=== PATIENT | male | born 1960 | race Caucasian/White ===

== ENCOUNTER 2024-04-30 14:26 | Emergency (ER) | payer MEDICARE, SELFPAY ==
[2024-04-30 14:35] VITALS: BP 149/86; PULSE 77; RESP 20; TEMP 36.8; O2SAT 100
--- NOTE | 2024-04-30 14:58 | ED_ITS ---
HPI - URI/Sore Throat General Chief Complaint: Upper Respiratory Infection Stated Complaint: Sinus Congestion/Ear Pain Time Seen by Provider: 04/30/24 14:50 Source: patient, RN notes reviewed and old records reviewed Mode of arrival: ambulatory Limitations: no limitations History of Present Illness HPI Narrative: 64 year old male who presents to [facility] care with complaints of 2 day history of sinus congestion drainage some facial pressure with ear pain with ears popping. Patient reports that he has had cough which is dry denies any shortness of breath. Patient reports no fevers chills or body aches. Patient has not tried any OTC medications for his symptoms, is daily cigarette smoker and has history of hypertension. MD elicited complaint: rhinorrhea, nasal congestion and other (ear pain) Pertinent past history: other (smoker) Onset (ago): day(s) (2) Severity: moderate Able to tolerate fluids by mouth: Yes Treatments prior to arrival: none Related Data Home Medications ?Medication ?Instructions ?Recorded ?Confirmed ?Last Taken ?Type albuterol sulfate 90 mcg/actuation inhalation 04/30/24 Unknown History aerosol inhaler amlodipine 10 mg tablet mg 04/30/24 Unknown History bupropion HCl 75 mg tablet mg PO 04/30/24 Unknown History buspirone 5 mg tablet mg 04/30/24 Unknown History lisinopril 40 mg tablet mg 04/30/24 Unknown History Allergies Allergy/AdvReac Type Severity Reaction Status Date / Time Penicillins Allergy Unknown unknown Verified 04/30/24 14:41 Review of Systems Review of Systems: CONSTITUTIONAL:Reports malaise, no chills, sweats, or fever. EYES: Denies visual changes, redness, or discharge. ENT: Reports rhinorrhea, congestion, sinus pain, otalgia and no sore throat. CARDIOVASCULAR: Denies chest pain, palpitations, or edema. RESPIRATORY: Reports cough.? Denies any acute dyspnea. GASTROINTESTINAL: Denies abdominal pain, nausea, vomiting, diarrhea SKIN: Denies rash or itching. MUSCULOSKELETAL: Denies myalgia. NEUROLOGIC: Denies headache. All systems reviewed & are unremarkable except as noted in HPI and below PMFSH Past Medical History Medical History (Updated 05/01/24 @ 12:32 by Tanya Baker NP) Anxiety Hypertension Social History Social History (Updated 05/01/24 @ 12:28 by Tanya Baker NP) Smoking packs per day: 0.5 Smoking cigarettes per day: 10.0 Years smoked: 30 Smoking pack-years: 15.00 Smoking status: Current every day smoker Tobacco type: cigarettes Alcohol intake: current Alcohol use details: social Substance use type: does not use Gender identity (if verbalized by the patient): Male Comments At time of signature, agree with nursing past medical, surgical, social and family history. There is no relevant family history pertinent to the presenting complaint Exam Narrative: GENERAL: Well-appearing, well-nourished, and in no acute distress. HEAD: Normocephalic EYES: PERRLA, conjunctivae clear ENT: Nares clear, turbinates edematous and erythematous, clear discharge, sinus pressure. Mucous membranes moist. Left TM red, Right TM pearly bravo with dull light reflex bilaterally; no tragal tenderness. Oropharynx erythematous without lesions. Tonsils not enlarged and without exudate, no drooling, no hoarseness, no trismus, uvula midline.post nasal drainage NECK: Supple. No lymphadenopathy CHEST: Clear to auscultation, breath sounds equal. No wheezing, rhonchi, rales, or stridor. No respiratory distress, speaks in full sentences.frequent dry cough SAO2 100% on room air HEART: Regular rate and rhythm. No murmur heard. SKIN: Warm, dry, no rash. NEURO: Alert and oriented x3. PSYCH: Normal mood and affect Course Course Emergency Course: Patient is aware of diagnosis, understands and agrees to treatment plan.? Anticipatory guidance given.? Patient agrees to follow-up as directed and is aware of reasons to seek care at the emergency department. Portions of this record may have been created with voice recognition software Level of Care: Express Care Visit Vital Signs Vital signs: Vital Signs Temperature 36.8 C 04/30/24 14:35 Pulse Rate 77 04/30/24 14:35 Respiratory Rate 20 04/30/24 14:35 Blood Pressure 149/86 H 04/30/24 14:35 Pulse Oximetry 100 04/30/24 14:35 Oxygen Delivery Room Air 04/30/24 14:35 Temperature 36.8 C 04/30/24 14:35 Pulse Rate 77 04/30/24 14:35 Respiratory Rate 04/30/24 14:35 Blood Pressure 149/86 H 04/30/24 14:35 Pulse Oximetry 100 04/30/24 14:35 Oxygen Delivery Room Air 04/30/24 14:35 Reviewed MDM - URI/Sore Throat MDM Narrative Medical decision making narrative: Differential diagnosis considered: Blanco virus, strep pharyngitis, allergic rhinitis, upper respiratory tract infection, sinusitis, rhinosinusitis, nasopharyngitis. viral pharyngitis, otitis media, otitis externa, pneumonia, bronchitis, viral cough syndrome, viral syndrome, and influenza.? Exam findings show no acute concerns or changes; patient is non-toxic appearing and is in no distress.? Patient is appropriate for outpatient treatment and follow-up. Differential Diagnosis Differential diagnosis: Likely upper respiratory infection, otitis media, sinusitis, viral infection, bronchitis and other (acute cough) Medical Records Attestation: I reviewed the patient's medical records. Lab Data Attestation: I reviewed the patient's lab results. Critical Care Time Critical Care Time Critical Care Time: No Discharge Plan Discharge Clinical Impression: Otitis media Qualifiers: Otitis media type: serous Chronicity: acute Laterality: left Recurrence: non- recurrent Qualified Code(s): H65.02 - Acute serous otitis media, left ear Cough Qualifiers: Cough type: acute Qualified Code(s): R05.1 - Acute cough Patient Disposition: Home, Self-Care Condition: Stable Instructions: Antibiotic Form, Ear Infection (GEN), Acute Cough (ED) Additional Instructions: Increase fluids especially juices and water [id number] cough and cold medicine of your choice for your symptoms Zyrtec Claritin or Ayde daily include Coricidin brand decongestant Continue your inhaler/nebulizer as directed Steroids as directed--take with food heat to the face 20-30 minutes 4-6 times a day for pain Salt water gargles, throat lozenges or throat sprays as desired Antibiotic as directed--finished the medication If your symptoms persist, change or worsen significantly before you can contact your personal physician then please, without delay, go to the emergency department for further evaluation. Follow-up with PCP in 7-10 days or sooner if needed Follow up with PCP soon in regards to your blood pressure which is elevated above threshold for referral. Blood pressure above 120/80 may indicate pre- hypertension. 149/86 Patient Language: Slovenian Prescriptions: New azithromycin 500 mg tablet 500 mg PO DAILY 5 Days Qty: 5 0RF prednisone 20 mg tablet 20 mg PO BID Qty: 10 0RF Rx Instructions: take with food take am and early PM before 6pm No Action buspirone 5 mg tablet amlodipine 10 mg tablet bupropion HCl 75 mg tablet PO albuterol sulfate 90 mcg/actuation HFA aerosol inhaler INHALATION lisinopril 40 mg tablet Follow-up/Referrals: Ladan,CESAR Cox [Primary Care Provider] - Time of Disposition: 15:07 Quality [place] Coma Scale Eyes: Open Verbal: Oriented and Alert Motor: Follows Commands [place] Coma Total Score: 15
== END 2024-04-30 15:16 | disposition home or self-care (01) ==
PROVIDERS: Emergency Provider Registered Nurse; PCP Physician Assistant
DX: H65.02 Acute serous otitis media, left ear (principal); R05.1 Acute cough; I10 Essential (primary) hypertension; F41.9 Anxiety disorder, unspecified
CPT/HCPCS: 99203; G0463

== ENCOUNTER 2024-10-04 14:45 | Emergency (ER) | payer MEDICARE, SELFPAY ==
[2024-10-04 14:50] VITALS: BP 138/79; PULSE 78; RESP 20; TEMP 37; O2SAT 98
--- NOTE | 2024-10-04 14:50 | ED_ITS ---
HPI - Ear Problem General Chief complaint: Ear Stated complaint: Nasal Congestion/Left Ear Problem Time Seen by Provider: 10/04/24 14:52 Source: patient and RN notes reviewed Mode of arrival: ambulatory Limitations: no limitations History of Present Illness HPI Narrative: 64-year-old male presents with concern for sinus pressure, congestion, ear fullness. He reports she has 3 day history of symptoms. He denies cough, fever, body aches, chills, sweats. He has not taken any medication for his symptoms AST was not sure when he can take with high blood pressure. MD Complaint: ear pain Related Data Home Medications ?Medication ?Instructions ?Recorded ?Confirmed ?Last Taken ?Type albuterol sulfate 90 mcg/actuation inhalation 04/30/24 Unknown History aerosol inhaler amlodipine 10 mg tablet mg 04/30/24 Unknown History bupropion HCl 75 mg tablet mg PO 04/30/24 Unknown History buspirone 5 mg tablet mg 04/30/24 Unknown History lisinopril 40 mg tablet mg 04/30/24 Unknown History Allergies Allergy/AdvReac Type Severity Reaction Status Date / Time Penicillins Allergy Unknown unknown Verified 04/30/24 14:41 Review of Systems Review of Systems: CONSTITUTIONAL: Denies malaise, chills, sweats, or fever. EYES: Denies visual changes, redness, or discharge. ENT: Reports rhinorrhea, congestion. Denies sinus pain and sore throat. Reports left ear fullness CARDIOVASCULAR: Denies chest pain, palpitations, or edema. RESPIRATORY: Denies cough. Denies dyspnea. GASTROINTESTINAL: Denies abdominal pain, nausea, vomiting, diarrhea SKIN: Denies rash or itching. MUSCULOSKELETAL: Denies myalgia. NEUROLOGIC: Denies headache. All systems reviewed & are unremarkable except as noted in HPI and below PMFSH Past Medical History Medical History (Updated 10/04/24 @ 15:01 by Asia Dos Santos NP) Anxiety Hypertension Social History Social History (Updated 05/01/24 @ 12:28 by Tanya Baker NP) Smoking packs per day: 0.5 Smoking cigarettes per day: 10.0 Years smoked: 30 Smoking pack-years: 15.00 Smoking status: Current every day smoker Tobacco type: cigarettes Alcohol intake: current Alcohol use details: social Substance use type: does not use Gender identity (if verbalized by the patient): Male Comments At time of signature, agree with nursing past medical, surgical, social and family history. There is no relevant family history pertinent to the presenting complaint Exam Narrative: GENERAL: Well-appearing, well-nourished, and in no acute distress. HEAD: Normocephalic EYES: PERRLA, conjunctivae clear ENT: Nares clear, turbinates edematous, clear discharge. Mucous membranes moist. TM pearly bravo with sharp light reflex on the right, dull on the left; no tragal tenderness. Oropharynx not erythematous without lesions. Tonsils not enlarged and without exudate, no drooling, no hoarseness, no trismus, uvula midline. NECK: Supple. No lymphadenopathy CHEST: Clear to auscultation, breath sounds equal. No wheezing, rhonchi, rales, or stridor. No respiratory distress, speaks in full sentences. HEART: Regular rate and rhythm. No murmur heard. SKIN: Warm, dry, no rash. NEURO: Alert and oriented x3. PSYCH: Normal mood and affect Course Course Emergency Course: Patient is aware of diagnosis, understands and agrees to treatment plan. Anticipatory guidance given. Patient agrees to follow-up as directed and is aware of reasons to seek care at the emergency department. Portions of this record may have been created with voice recognition software Level of Care: Express Care Visit Vital Signs Vital signs: Reviewed. Medical Decision Making [facility] Narrative Medical decision making narrative: I evaluated this in the express care. History is obtained from patient who is an independent historian and physical exam was performed.? Available medical records were reviewed. ? Exam findings and relevant testing show no acute concerns or changes; patient is non-toxic appearing and is in no distress. Differential diagnosis considered: Blanco virus, strep pharyngitis, allergic rhinitis, upper respiratory tract infection, sinusitis, rhinosinusitis, nasopharyngitis. viral pharyngitis, otitis media, otitis externa, otitis effusion, cerumen impaction, foreign body. Exam findings show no acute concerns or changes; patient is non-toxic appearing and is in no distress. Patient is appropriate for outpatient treatment and follow-up. ? Differential diagnosis and treatment plan were discussed with the patient. Patient agrees with discussion and after shared medical decision making agrees with plan of care. All questions were answered to the patient's satisfaction. Patient is appropriate for outpatient treatment and follow-up. Critical Care Time Critical Care Time Critical Care Time: No Discharge Plan Discharge Clinical Impression: Fluid level behind tympanic membrane of left ear, Upper respiratory infection Patient Disposition: Home Condition: Stable Instructions: Upper Respiratory Infection (ED), Antibiotic Form Additional Instructions: Viral illness may last between 7-21 days; antibiotics do not cure viral illness and are NOT recommended at this time. Recommend antihistamine such as Benadryl at night time and Zyrtec or Ayde during the day Also, recommend symptomatic treatment includes: rest, fluids, and increase humidity of the air at home. Recommend Acetaminophen as directed on the bottle to reduce fever, pain, headache. Avoid smoking/second-hand smoke. Please schedule a follow-up visit with your personal physician for further evaluation and treatment within 3-5days. If your symptoms persist, change or worsen significantly before you can contact your personal physician then please, without delay, go to the emergency department for further evaluation. Patient Language: Romansh Prescriptions: New methylprednisolone [Medrol (Itz)] 4 mg tablets,dose pack See Rx Instructions .ROUTE .COMPLEX Qty: 21 0RF Rx Instructions: orally per package directions fluticasone propionate [Flonase Allergy Relief] 50 mcg/actuation spray,suspension 2 spray NASAL DAILY 14 Days Qty: 15.8 0RF Rx Instructions: administer into each nostril No Action buspirone 5 mg tablet amlodipine 10 mg tablet bupropion HCl 75 mg tablet PO albuterol sulfate 90 mcg/actuation HFA aerosol inhaler INHALATION lisinopril 40 mg tablet Follow-up/Referrals: Ladan,CESAR Cox [Primary Care Provider] - Time of Disposition: 15:02
--- OUTSIDE RECORDS SUMMARY | 2024-10-04 14:51 | XMS_ITS | Clinical Summary ---
Author Organization [facility] Address [address] [place] [address] Phone Care Team Providers Care Forestry Technician Name Role Phone Brooke Pickering PAC Primary Care Pro vider Catalino Gleason APRN, POSTAGE MACHINE OPERATOR Unavailable Allergies Active Allergy Reactions Criticality Noted Date Comments Cephalexin Swelling High 01/15/2024 Reaction: face swelling, Penicillins Unknown Medications busPIRone (BUSPAR) 5 MG Tablet Take 1 Tablet by mouth 2 times daily. 60 Tablet 2 4 025 Active rosuvastatin (CRESTOR) 20 MG Tablet Take 1 Tablet by mouth daily. 90 Tablet 4 Active glipiZIDE (GLUCOTROL) 5 MG Tablet Take 1 Tablet by mouth daily (with breakfast). 90 Tablet 4 025 Active amLODIPine (NORVASC) 10 MG Tablet Take 1 Tablet by mouth daily. 90 Tablet 4 Active albuterol 108 (90 Base) MCG/ACT Aerosol Solution take 2 Puffs by inhalation every 4 hours as needed for Wheezing. 18 g 5 Active aspirin EC 81 MG Tablet Delayed Response Take 1 Tablet by mouth daily. 7 Active buPROPion (WELLBUTRIN) 75 MG Tablet Take 2 Tablets by mouth daily. 30 Tablet 2 5 Active lisinopril (PRINIVIL, ZESTRIL) 40 MG Tablet Take 1 Tablet by mouth daily. 90 Tablet 5 Active solifenacin (VESICARE) 10 MG TabletIndication s:Urge incontinence of urine Take 1 Tablet by mouth daily. 30 Tablet 1 5 Active terazosin (HYTRIN) 1 MG CapsuleIndicatio ns:Urge incontinence of urine Take 1 Capsule by mouth nightly. 30 Capsule 5 Active terazosin (HYTRIN) 1 MG Capsule Take 1 Capsule by mouth nightly. 30 Capsule 2 5 025 Discontin ued(Reord er) solifenacin (VESICARE) 10 MG TabletIndication s:Urge incontinence of urine Take 1 Tablet by mouth daily. 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 NO ACUTE INTRACRANIAL PROCESS OR EVIDENCE OF INFARCT. 2. OLD LEFT OCCIPITAL LOBE INFARCT. 3. PROMINENT VIRCHOW-DEIDRE SPACE IN THE LEFT BASAL GANGLIA. 4. SMALL VESSEL DISEASE. 5. MAXILLARY SINUS DISEASE. ADDENDUM: A focus of increased signal on the diffusion sequence is noted in the left brain stem with an associated region of decreased signal on the ADC map consistent with an acute infarct. These findings were discussed with Dr. Deleon of neurology by myself at 1150 on 05/12/13. Other hyperlipidemia 01/15/2024 Smoker 01/15/2024 Overview (05/05/2024): 1/2-1 ppd Started smoking age [address] chest ordered Type 2 diabetes mellitus wit hout complication, without long-term current use of insulin 01/15/2024 HTN (hypertension) Depression Anxiety OCD (obsessive compulsive disorder) Encounters Date Type Department Care Team Description 09/27/2024 1:45 PM CDT Office Visit [facility] [address] [place] [address] Catalino Gleason, RADIOSONDE OPERATOR, POSTAGE MACHINE OPERATOR Urge incontinence of urine (Primary Dx); Family history of kidney cancer Discharge Disposition: Discharged to home or Selfcare 09/27/2024 Travel 09/22/2024 2:30 PM CDT Office Visit [facility] [address] [place] [address] Brooke Pickering PAC Chronic sinusitis, unspecified location (Primary Dx); Skin lesion Discharge Disposition: Discharged to home or Selfcare 09/22/2024 Travel 09/21/2024 Nurse Triage [facility] Call [address] [phone] Brooke Pickering PAC Sinus Problem 09/21/[address] [phone] Brooke Pickering, PAULA 09/21/[address] [phone] Brooke Pickering, PAULA 09/20/[address] [phone] Brooke Pickering, PAULA Appointment (/) 09/08/2024 3:30 PM CDT Telemedicine [facility] [address] [place] [address] Brooke Pickering, PAULA Primary hypertension (Primary Dx); Sinus congestion 09/08/2024 Telephone [facility] [address] [place] [phone] Brooke Pickering, PAULA 09/03/2024 [facility] [address] [place] [address] Brooke Pickering, PAULA Medication Renewal Reviewed 09/03/2024 Refill [facility] [address] [place] [address] Brooke Pickering, PAC Medication Refill 08/11/2024 3:30 PM CDT Office Visit [facility] [address] [place] [address] Brooke Pickering, PAC Upper respiratory tract infection, unspecified type (Primary Dx); Elevated blood pressure reading Discharge Disposition: Discharged to home or Selfcare 08/09/2024 2:30 PM CDT Office Visit [facility] [address] [place] [phone] Catalino Gleason, RADIOSONDE OPERATOR, POSTAGE MACHINE OPERATOR Urge incontinence of urine (Primary Dx); Abnormal urinalysis; Family history of kidney cancer Discharge Disposition: Discharged to home or Selfcare 08/09/2024 Travel 08/08/2024 Travel 08/04/2024 2:00 PM CDT Urgent Care Visit [facility] [address] [place] [phone] Eder Benavides, PAULA Bacterial upper respiratory infection (Primary Dx); Acute cough Discharge Disposition: Discharged to home or Selfcare 08/04/2024 Travel 07/26/2024 Travel 07/23/2024 Telephone [facility] [address] [place] [phone] Brooke Pickering, PAC 07/20/20[facility] [address] [place] [phone] Brooke Pickering, PAC Medication Refill 07/20/2024 [facility] [address] [place] [address] Brooke Pickering, PAC 07/15/2024 Telephone [facility] [address] [place] [address] LadanBrooke chaves PAC 07/09/2024 12:30 PM CDT Telemedicine [facility] [place] [address] [place] [address] Brooke Pickering PAC Primary hypertension (Primary Dx); Non-compliance 07/08/2024 Travel from Last 3 Months Immunizations Immunization Administration Dates Next Due Influenza Vaccine greater than 3 yrs 02/05/2013 Influenza Vaccine, Quadrivalent, PF 01/05,03/05/2022,01/09/2021,2019,02/12/2019,02/12/2017 Influenza, Injectable, Quadrivalent 01/26/2015 Influenza, Seasonal, Injecta ble, Undefined 12/27/2013,01/24/2013,02/29/2008 Influenza, Trivalent, Adjuvanted, PF 02/13/2024 TDAP Vaccine 06/07/2016 Social History Tobacco Use Types Packs/Day Years Used Date Smoking Tobacco: Every Day Cigarettes Smokeless Tobacco: Never Tobacco Cessation:Ready to Q uit: Not Asked; Counseling Given: Not Answered Alcohol Use Standard Drinks/Week Comments Yes 0 (1 standard drink = 0.6 oz pur e alcohol) [facility] WhatsNexxities Answer Date Recorded In the past 12 months has [employer], gas, oil, or water [employer] threatened to shut off services in your home? No 06/23/2024 Social Connection and Isolation Panel Answer Date Recorded In a typical week, how many times do you talk on the phone with family, friends, or neighbors? Twice a week 06/23/2024 How often do you get together with friends or re latives? Once a week 06/23/2024 How often do you attend taoist or buddhist serv ices? Never 06/23/2024 Do you belong to any clubs o r organizations such as taoist groups, unions, fraternal or athletic groups, or school groups? No 06/23/2024 How often do you attend meet ings of the clubs or organizations you belong to? Never 06/23/2024 Are you , , di vorced, , never , or living with a partner? 06/23/2024 AUDIT-C Answer Date Recorded Q1: How often do you have a drink containing alc ohol? 2-3 times a week 06/23/2024 Q2: How many drinks containi ng alcohol do you have on a typical day when you are drinking? 1 or 2 06/23/2024 Q3: How often do you have si x or more drinks on one occasion? Monthly 06/23/2024 Overall Financial Resource Strain (CARDIA) Answe r Date Recorded How hard is it for you to pa y for the very basics like food, housing, medical care, and heating? Not hard at all 06/23/2024 PHQ-2 Answer Date Recorded Total Score - Questions 1-9 2 05/09 [facility] of Occupat ional Health - Occupational Stress Questionnaire Answer Date Recorded Do you feel stress - tense, restless, nervous, or anxious, or unable to sleep at night because your mind is troubled all the time - these days? To some extent 06/23/2024 Exercise Vital Sign Answer Date Recorde d On average, how many days pe r week do you engage in moderate to strenuous exercise (like a brisk walk)? 3 days 06/23/2024 On average, how many minutes do you engage in exercise at this level? 60 min 06/23/2024 Hunger Vital Sign Answer Date Recorded Within the past 12 months, y ou worried that your food would run out before you got the money to buy more. Never true 06/24/19 25 Within the past 12 months, t he food you bought just didn't last and you didn't have money to get more. Never true 06/23/2024 PRAPARE - Transportation Answer Date Re corded In the past 12 months, has l ack of transportation kept you from medical appointments or from getting medications? No 06/05 In the past 12 months, has l ack of transportation kept you from meetings, work, or from getting things needed for daily living? No 06/23/2024 Housing Stability Vital Sign Answer Iván e Recorded In the last 12 months, was t here a time when you were not able to pay the mortgage or rent on time? No 06/23/2024 In the past 12 months, how m any times have you moved where you were living? 1 06/23/2024 At any time in the past 12 m [facility], were you homeless or living in a prison (including now)? No 06/23/2024 Sex and Gender Information Value Date Recorded Sex Assigned at Not on file Legal Sex Male 8:06 PM CDT Gender Identity Not on file Sexual Orientation Not on file Last Filed Vital Signs Vital Sign Reading Time Taken Comments Blood Pressure 165/86 09/27/2024 1:42 PM CDT Pulse 92 09/27/2024 1:42 PM CDT Temperature 36.6 C (97.8 F) 09/22/2024 2:14 PM CDT Respiratory Rate 18 09/27/2024 1:42 PM CDT Oxygen Saturation 97% 09/27/2024 1:42 PM CDT Inhaled Oxygen Concentration - - Weight 73.9 kg (163 lb) 09/27/2024 1:42 PM CDT Height 170.2 cm (5' 7) 09/27/2024 1:42 PM CDT Body Mass Index 25.53 09/27/2024 1:42 PM CDT Plan of Treatment Upcoming Encounters Date Type Department Care Team (Late st Contact Info) Description 10/25/2024 1:45 PM CDT Office Visit [facility] [address] [place] [address] Catalino Gleason, RADIOSONDE OPERATOR, POSTAGE MACHINE OPERATOR [address] [place] [address] Health Maintenance Due Date Last Done Comments Diabetes: Eye Exam 1958 Diabetes: Foot Exam 1960 Hepatitis C Virus (HCV) Screening 1958 Pneumococcal Immunization (50+ years) (1 of 2 - PCV) 1977 Cologuard 2003 Colonoscopy 2003 Colorectal Cancer Screening 2003 Immunochemical Fecal Occult Blood 2003 Zoster Immunization (1 of 2) 2008 AAA Screening Ultrasound 2023 SARS-COV-2 Immunization ( - season) 2023 07/15/2020 Diabetes: Hemoglobin A1c 09/09/2024 03/11/2024, 04/ Diabetes: Nephropathy Screening 03/11/2025 03/11/2024 Td Immunization Every 10 Years (Adults With 1 Tdap) 06/07/2026 06/07/2016 Respiratory Syncytial Virus (RSV) Immunization (Adult) (1 - 1-dose 75+ series) 2033 DTaP/Tdap/Td Immunization Discontinued 06/07/2016 TdaP Immunization Discontinued 06/07/2016 Influenza Immunization Completed , 01/14/2023, 03/05/2022, Additional history exists PSA Discussion Completed 03/11/2024 Hepatitis B Immunization Aged Out No longer eligible based on patient's age to complete this topic Human Papillomavirus (HPV) Immunization Aged Out No longer eligible based on patient's age to complete this topic Meningococcal Immunization (ACWY) Aged Out No longer eligible based on patient's age to complete this topic Rotavirus Immunization Aged Out No lo nger eligible based on patient's age to complete this topic Procedures Procedure Name Priority Date/Time Associated Diagnosis Comments JOSETTE,POST-VOID RES,US,NON-IMAGING Routine 09/27/2024 1:45 PM CDT Urge incontinence of urine POCT UA AUTOMATED W/O MICRO Routine 08/09/2024 2:15 PM CDT Urge incontinence of urine POC SARS-COV-2 BY MOLECULAR Routine 08/04/2024 2:14 PM CDT Acute cough CMP (COMPREHENSIVE METABOLIC PANEL) Routine 03/11/2024 3:05 PM FLUME MAKER Primary hypertension HEMOGLOBIN A1C W/ ESTIMATED GLUCOSE Routine 03/11/2024 3:05 PM FLUME MAKER Primary hypertension Abnormal finding of blood chemistry, unspecified PSA SCREEN Routine 03/11/2024 3:05 PM FLUME MAKER Prostate cancer screening from Last 3 Months or Most Recently Relevant to Health Maintenance Results * JOSETTE,POST-VOID RES,US,NON-IMAGING (09/27/2024 1:45 PM CDT) Narrative Lona Hayes - 09/27/2024 1:45 PM CDT Lona Hayes 10/01/2024 8:39 AM POCT Bladder Scan collected per standing order of Wilson Gleason on 10/01/2024 PVR= 138 ML Catalino Gleason APRN, POSTAGE MACHINE OPERATOR ID - SURGERY Final Result * (ABNORMAL) POCT UA AUTOMATED W/O MICRO (08/09/2024 2:15 PM CDT) [facility] POC UA SPECIFIC GRAVITY 1.015 URINE PH 6.0 5.0 - 9.0 POC URINE LEUKOCYTES Negative Negative Yash/uL POC URINE NITRITE Negative Negative POC URINE PROTEIN Negative Negative mg/dL POC URINE GLUCOSE 50 mg/dL(A) Negative, Norm mg/dL POC URINE KETONE Negative Negative mg/dL POC URINE UROBILINOGEN Norm Norm, 0.2 E.U./dL (mg/dL), 1 E.U./dL (mg/dL) POC URINE BILIRUBIN Negative Negative mg/dL POC URINE BLOOD INSTRUMENT 50 Fredrick/uL(A) Negative Fredrick/uL POC URINE COLOR Yellow POC URINE CLARITY Clear 08/09/2024 2:15 PM CDT Catalino Gleason RADIOSONDE OPERATOR, POSTAGE MACHINE OPERATOR POINT OF CARE TESTING (MANUAL) Final Result * POC SARS-COV-2 BY MOLECULAR (08/04/2024 2:14 PM CDT) [facility] SARSCOV2 Negative Negative, INVALID PROCEDURE CONTROL Valid 08/04/2024 2:14 PM CDT Eder Benavides [facility] POINT OF CARE TESTING (MANUAL ) Final Result * HEMOGLOBIN A1C W/ ESTIMATED GLUCOSE (03/11/2024 3:05 PM FLUME MAKER) [facility] HGB-A1C 5.9 4.0 - 6.0 % 03/11/2024 3:59 PM FLUME MAKER [facility] Est Average Glucose 122.6 mg/dL 03/11/2024 3:59 PM FLUME MAKER [facility] Blood Venipuncture / Unknown 03/11/2024 3:05 PM FLUME MAKER 03/11/2024 3:41 PM FLUME MAKER Narrative [facility] - 03/11/2024 3:59 PM FLUME MAKER HEMOGLOBIN A1C: DIABETIC PATIENTS: WELL-CONTROLLED: 6.2 - 7.0 INTERMEDIATE WELL-CONTROLLED: 7.0 - 9.0 POORLY-CONTROLLED: >9.0 Brooke Padronarlin PAC CHEMISTRY ORDERAB LES Final Result Performing Organization Address [facility] Co de Phone Number [facility] [address] [place] [address] * PSA SCREEN (03/11/2024 3:05 PM FLUME MAKER) PSA SCREEN, TOTAL 1.32 <4.00 ng/mL 03/11/2024 4:23 PM FLUME MAKER [facility] Blood Venipuncture / Unknown 03/11/2024 3:05 PM FLUME MAKER 03/11/2024 3:42 PM FLUME MAKER Narrative [facility] - 03/11/2024 4:23 PM FLUME MAKER The Central Test Total PSA assay is a Chemiluminescent Microparticle Immunoassay (CMIA) for the quantitative determination of total PSA (both free PSA and PSA complexed to [id number]) in human serum. Total PSA values obtained with different assay methods, including Barreto PSA assays, cannot be used interchangeably. Brooke Conner Ladan PAC CHEMISTRY ORDERAB LES Final Result Performing Organization Address [facility] Co de Phone Number [facility] [address] [place] [address] * (ABNORMAL) CMP (COMPREHENSIVE METABOLIC PANEL) (03/11/2024 3:05 PM FLUME MAKER) SODIUM 140 136 - 145 mmol/L 03/11/2024 4:06 PM FLUME MAKER [facility] POTASSIUM 3.9 3.5 - 5.1 mmol/L 03/11/2024 4:06 PM FLUME MAKER [facility] CHLORIDE 104 98 - 107 mmol/L 03/11/2024 4:06 PM FLUME MAKER [facility] CO2, VENOUS 27 22 - 30 mmol/L 03/11/2024 4:06 PM [facility] ANION GAP 12.9 <18.0 mmol/L 03/11/2024 4:06 PM [facility] GLUCOSE 221(H) 70 - 99 mg/dL 03/11/2024 4:06 PM [facility] BUN 19 8 - 26 mg/dL 03/11/2024 4:06 PM [facility] CREATININE, BLOOD 0.85 0.70 - 1.30 mg/dL 03/11/2024 4:06 PM [facility] BUN/CREATININE RATIO 22(H) 12 - 20 ratio 03/11/2024 4:06 PM [facility] TOTAL PROTEIN 6.7 6.3 - 8.2 g/dL 03/11/2024 4:06 PM [facility] ALBUMIN 4.0 3.5 - 5.0 g/dL 03/11/2024 4:06 PM [facility] A/G RATIO 1.5 1.0 - 2.2 03/11/2024 4:06 PM [facility] CALCIUM 9.5 8.7 - 10.5 mg/dL 03/11/2024 4:06 PM [facility] T BILI 0.7 0.2 - 1.2 mg/dL 03/11/2024 4:06 PM [facility] SGOT (AST) 17 5 - 34 U/L 03/11/2024 4:06 PM [facility] SGPT (ALT) 30 0 - 55 U/L 03/11/2024 4:06 PM [facility] ALKALINE PHOSPHATASE 77 40 - 150 U/L 03/11/2024 4:06 PM [facility] IS THE PATIENT REQUIRED TO BE FASTING? No 03/11/2024 4:06 PM [facility] GFR, ESTIMATED >60 >=60 03/11/2024 4:06 PM [facility] Comment: Creatinine Clearance is the preferred criteria for selecting drug dose adjustments in renally impaired patients. The GFR is provided as additional pertinent clinical information. GFR is reported in mL/min/1.73 sq m. Calculation based on the Chronic Kidney Disease Epidemiology Collaboration (CKD- EPI) equation refit without adjustment for race. GFR, EST. >60 >=60 024 4:06 PM FLUME MAKER [facility] GFR, EST. NONAFRICAN >60 >=60 03/11/2024 4:06 PM FLUME MAKER [facility] Blood Venipuncture / Unknown 03/11/2024 3:05 PM FLUME MAKER 03/11/2024 3:41 PM FLUME MAKER Brooke Pickering PAC CHEMISTRY ORDERAB LES Final Result [facility] [address] [place] [address] from Last 3 Months or Most Recently Relevant to Health Maintenance Insurance MEDICARE C [employer] Care Teams Forestry Technician Relationship Specialty Start Date End Date Brooke Pickering, PAULA [address] [place] [address] PCP - General Physician Production Support Analyst 01/15/24 Catalino Gleason, RADIOSONDE OPERATOR, POSTAGE MACHINE OPERATOR [address] [place] [address] Nurse Practitioner Advanced Practice Nurse 08/05/24
--- OUTSIDE RECORDS SUMMARY | 2024-10-04 14:51 | XMS_ITS | Encounter Summary ---
Author Organization [facility] Address [address] [place] [address] Phone Care Team Providers Care Machine Sand Mixer Name Role Phone Brooke Pickering PAC Primary Care Pro vider Catalino Gleason APRN, ROAD PASSENGER FIRER Unavailable + [phone] Reason for Visit * Reason Onset Date Comments Sinus Problem 09/21/2024 Encounter Details Date Type Department Care Team (Late st Contact Info) Description 09/21/2024 Nurse Triage [facility] [address] [place] [address] Brooke Pickering, PAC [address] [place] [address] Sinus Problem Social History Tobacco Use Types Packs/Day Years Used Date Smoking Tobacco: Every Day Cigarettes Smokeless Tobacco: Never Alcohol Use Standard Drinks/Week Comments Yes 0 (1 standard drink = 0.6 oz pur e alcohol) [facility] Utilities Answer Date Recorded In the past 12 months has [employer], gas, oil, or water [employer] threatened to shut off services in your home? No 06/23/2024 Social Connection and Isolation Panel Answer Date Recorded In a typical week, how many times do you talk on the phone with family, friends, or neighbors? Twice a week 06/23/2024 How often do you get together with friends or re latives? Once a week 06/23/2024 How often do you attend lutheran or rastafarian serv ices? Never 06/23/2024 Do you belong to any clubs o r organizations such as lutheran groups, unions, fraternal or athletic groups, or [...] Total Score - Questions 1-9 2 05/09 [facility] of Occupat ional Health - Occupational Stress [...] any time in the past 12 m [facility], were you homeless or living in a fci (including now)? No 06/23/2024 Sex and Gender Information Value Date Recorded Sex Assigned at Not on file Legal Sex Male 8:06 PM CDT Gender Identity Not on file Sexual Orientation Not on file documented as of this encounter Miscellaneous Notes * Telephone Encounter - Sister Henry Cui, RN - 09/21/2024 11:58 AM CDT SITUATION: Sinus congestion x 3-4 days BACKGROUND: Patient contacting PCP office. Per chart review, patient was seen for office visit on 09/08/24 and noted chronic sinus problems. ASSESSMENT: Symptom Description / Location: Nasal congestion Tenderness to left cheek Nasal congestion Left ear pain, sharp stabbing Dry cough Watery eyes Pain: 7/10, tender Fever: Denies fever. Treatment / Response: mucinex with no relief. RECOMMENDATION: Dispositions for Encounter:See in Office or Video Visit Today. Reason for Disposition: Earache Protocols Used: Sinus Pain or [id number] Medication, allergies, and pharmacy reviewed. Care advice provided per triage guideline. Caller verbalized understanding. Appointment Scheduled. All Patient Appointments Date & Time Provider Department Dept Phone 09/22/2024 2:30 PM Brooke Pickering [facility] [phone] 09/27/2024 1:45 PM [facility] [phone] Encounter routed to provider to notify. Discussed utilizing blogfoster to: E-check in prior to upcoming appointment - See care advice and disposition for Guideline. First positive answer recorded, all responses to prior questions were negative. If symptoms increase, change or if new symptoms develop, call your health care provider or call back. Recommendations were based on caller information and is not a diagnosis. Verified and reviewed all triage information with caller. documented in this encounter Plan of Treatment Upcoming Encounters Date Type Department Care Team (Late st Contact Info) Description 10/25/2024 1:45 PM CDT Office Visit [facility] [address] [place] [address] Catalino Gleason APRN, ROAD PASSENGER FIRER [address] [place] [address] documented as of this encounter Visit Diagnoses Not on filedocumented in this encounter Additional Health Concerns Assessment Noted Time PHQ-9 Depression Total Score: 2 06/02/19 12:54 PM COLD STORAGE WORKER documented as of this encounter Care Teams Machine Sand Mixer Relationship Specialty Start Date End Date Brooke Pickering PAC [address] [place] [address] PCP - General Physician Compressor Station Chief Engineer 01/15/24 Catalino Gleason APRN, ROAD PASSENGER FIRER [address] [place] [address] Nurse Practitioner Advanced Practice Nurse 08/05/24 documented as of this encounter
--- OUTSIDE RECORDS SUMMARY | 2024-10-04 14:51 | XMS_ITS | Encounter Summary ---
Author Organization [facility] Address [address] [place] [address] Phone Care Team Providers Care Structurer Name Role Phone Brooke Pickering PAC Primary Care Pro vider Catalino Gleason APRN, INSURANCE VERIFIER Unavailable + [phone] Reason for Visit * Reason Comments Medication Refill Encounter Details Date Type Department Care Team (Late st Contact Info) Description 07/20/2024 Refill [facility] - Internal Medicine - [place] [address] [place] [id number] Brooke Pickering, PAC [address] [place] [address] Medication Refill Social History Tobacco Use Types Packs/Day Years Used Date Smoking Tobacco: Every Day Cigarettes Smokeless Tobacco: Never Alcohol Use Standard Drinks/Week Comments Yes 0 (1 standard drink = 0.6 oz pur e alcohol) [facility] Utilities Answer Date Recorded In the past 12 months has [employer], gas, oil, or water [employer] threatened to shut off services in your home? No 06/23/2024 Social Connection and Isolation Panel Answer Date Recorded In a typical week, how many times do you talk on the phone with family, friends, or neighbors? Twice a week 06/23/2024 How often do you get together with friends or re latives? Once a week 06/23/2024 How often do you attend jew or evangelical serv ices? Never 06/23/2024 Do you belong to any clubs o r organizations such as jew groups, unions, fraternal or athletic groups, or [...] Total Score - Questions 1-9 2 05/09 [facility] - [...] any time in the past 12 m [facility], were you homeless or living in a senior living (including now)? No 06/23/2024 Sex and Gender Information Value Date Recorded Sex Assigned at Not on file Legal Sex Male 8:06 PM CDT Gender Identity Not on file Sexual Orientation Not on file documented as of this encounter Plan of Treatment Upcoming Encounters Date Type Department Care Team (Late st Contact Info) Description 10/25/2024 1:45 PM CDT Office Visit [facility] [address] [place] [address] Catalino Gleason APRN, INSURANCE VERIFIER [address] [place] [address] documented as of this encounter Visit Diagnoses Not on filedocumented in this encounter Additional Health Concerns Infection Onset Date Last Indicated Resolved Time COVID - 19 08/04/2024 08/04/2024 08/04/2024 2:25 PM CDT Assessment Noted Time PHQ-9 Depression Total Score: 2 06/02/19 25 12:54 PM [employer]AT [employer]REAT P[employer]ER documented as of this encounter Care Teams Structurer Relationship Specialty Start Date End Date Brooke Pickering PAC [address] [place] [address] PCP - General Physician Wildlife Management Professor 01/15/24 Catalino Gleason, LAUNDRY ATTENDANT, INSURANCE VERIFIER [address] [place] [address] Nurse Practitioner Advanced Practice Nurse 08/05/24 documented as of this encounter
--- OUTSIDE RECORDS SUMMARY | 2024-10-04 14:51 | XMS_ITS | Referral Summary ---
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 Role Phone Unknown, Notinfile Unavailable Unavailable Brooke Pickering Primary Care Prov ider Encounters Date Type Department Care Team Description 07/21/2024 Telephone [facility] Accountable Care Organization [address] [place] [id number] Ngozi Francis Unsuccessful Phone Call 1 ([facility] dm eye exam) from Last 3 Months Allergies Active Allergy Reactions Criticality Noted Date Comments Cephalexin Angioedema High Reaction: face swelling, Penicillins Stomach upset Low Reaction: upset stomach, Medications aspirin 81 mg tablet take 1 tablet by oral route every day 0 0 7 Active uhicrcyj-eybf-VI- calcium-mins 9 mg iron-200 mcg tablet 7 Active tamsulosin (FLOMAX) 0.4 mg extended release capsule Take 1 capsule (0.4 mg total) by mouth daily 90 capsule 4 3 Active escitalopram (LEXAPRO) 10 mg tablet Take 1 tablet (10 mg total) by mouth daily 90 tablet 4 3 Active fluticasone propionate (FLONASE) 50 mcg/actuation nasal sprayIndications: Acute non-recurrent maxillary sinusitis Administer 2 sprays into each nostril daily 16 g 4 Active glipiZIDE (GLUCOTROL) 5 mg tabletIndications :type 2 diabetes mellitus Take 1 tablet (5 mg total) by mouth 2 (two) times a day before breakfast and lunch 180 tablet 3 4 Active amLODIPine (NORVASC) 10 mg tablet Take 1 tablet (10 mg total) by mouth daily 90 tablet 3 4 Active rosuvastatin (CRESTOR) 20 mg tablet Take 1 tablet (20 mg total) by mouth daily 30 tablet 11 4 Active traMADoL (ULTRAM) 50 mg tabletIndications :Other closed nondisplaced fracture of fourth cervical vertebra with routine healing, subsequent encounter Take 1 tablet (50 mg total) by mouth every 8 (eight) hours as needed for pain 60 tablet 4 Active albuterol HFA (PROVENTIL HFA,VENTOLIN HFA,PROAIR HFA) 90 mcg/actuation inhalerIndication s:Bronchitis INHALE 2 PUFFS BY MOUTH EVERY 4 HOURS NEEDED FOR WHEEZING OR SHORTNESS OF BREATH 7 each 4 Active lisinopriL (PRINIVIL,ZESTRIL ) 40 mg tabletIndications :Primary hypertension Take 1 tablet by mouth once daily 90 tablet 4 Active busPIRone (BUSPAR) 5 mg tabletIndications :Generalized Anxiety Disorder Take 1 tablet (5 mg total) by mouth 3 (three) times a day 90 tablet 1 4 12/09/19 25 Active Active Problems Problem Noted Date Diagnosed Date OCD (obsessive compulsive disorder) 12/29/2023 Depression 12/29/2023 Controlled type 2 diabetes m adrielitus without complication, without long-term current use of insulin 08/05/2023 Assessment & Plan (08/05/2023 2:43 PM CDT): REviwed need for repeat labowkr. Encourage regular glycemic montioring nad improt fo blood sugar control and optometry screening and foot care. Hypertension associated with diabetes 08/05/2023 Assessment & Plan (08/05/2023 2:43 PM CDT): Stable on lisinopril and amloidpien. WIll follow repsonse. Type 2 diabetes mellitus with hyperlipidemia Assessment & Plan (08/05/2023 2:45 PM CDT): REviewed indication for statin therapy related to diabetes comorbidity. Annual physical exam 08/05/2023 Assessment & Plan (08/05/2023 2:45 PM CDT): Focus of exam is prevnetative in nature. Reviwed immunizations, reviewed cancer screneing. Encourage tobacco cessation and LDCT. Patinet declines at presnet. Reivwed regular aerobic exericse. Benign prostatic hyperplasia with nocturia 08/04 Assessment & Plan (08/05/2023 2:46 PM CDT): COntinues on tamsulosin and continue f/u with urology. Mood disorder 08/05/2023 Assessment & Plan (08/05/2023 2:46 PM CDT): See discussion as above WIll add busprione to lexapro. Has been on the medicaiton in the past. UTI symptoms 08/25/2021 Assessment & Plan (08/25/2021 2:01 PM CDT): Negative UA in office. Only trace blood which he's had intermittently in past. PSA normal 08/2021. Poor hydration. Drinks caffeine excessively. Discussed need to flush bladder w/noncaffeine fluids. cx will be performed. Will call w/results. Age-related nuclear cataract of left eye 020 Assessment & Plan (10/21/2019 4:46 PM CDT): Not visually significant, monitor Pseudophakia of right eye 10/21/2019 Assessment & Plan (10/21/2019 4:47 PM CDT): Centered and stable, monitor Right retinal detachment 10/21/2019 Assessment & Plan (10/21/2019 4:48 PM CDT): SBP right eye (OD) . Stable Warned the patient of signs and symptoms of retinal detachment and to return to clinic promptly if they occur. Encounter for screening for lipid disorder 02/12 Assessment & Plan (02/13/2019 7:55 PM FOUNDER AND CHIEF TECHNICAL OFFICER): POCT lipid today: ho=038 hdl=48 LDL=84 Tc/hdl=3.3 Reviewed/explained results. Copy w/written explanations given to mr Clemens. Reviewed diet/activity recommendations. Need for influenza vaccination 02/12/2019 Assessment & Plan (02/13/2019 7:56 PM FOUNDER AND CHIEF TECHNICAL OFFICER): Flu vaccine given today. Discussed possible tenderness/redness at injection site. BMI 28.0-28.9,adult 02/12/2019 Assessment & Plan (02/13/2019 7:56 PM FOUNDER AND CHIEF TECHNICAL OFFICER): Reviewed need to lose weight, reviewed health benefits. Reviewed recommendations for daily intake & activity 20-30 minutes/day. Discussed healthy diet and importance of regular physical activity. Bronchitis 12/23/2018 Assessment & Plan (03/17/2019 1:44 PM FOUNDER AND CHIEF TECHNICAL OFFICER): Responded well to breathing treatment. Assessment & Plan (12/23/2018 6:08 PM CDT): Doxycycline & albuterol inhaler sent. To p/u expectorant (ie mucinex). Reviewed med Ses & scheduling. Aware to complete antibiotic. Instructed in albuterol inhaler use. Aware to rinse mouth after use. Push fluids. Discussed saline nasal spray. Reviewed red flags; what would warrant rtc or ED for further eval. Refused influenza vaccine 05/29/2018 Refused influenza vaccine 04/15/2018 Urinary frequency 04/15/2018 Assessment & Plan (02/13/2019 7:55 PM FOUNDER AND CHIEF TECHNICAL OFFICER): PSA ordered; will call with results when received. Reviewed flomax for urinary concerns. Assessment & Plan (04/30/2018 10:01 AM FOUNDER AND CHIEF TECHNICAL OFFICER): PSA ok No signs of UTI Really think urinary frequency is related to his diabetes Need blood sugars better controlled. Pt. Never started his Flomax Re-ordered Flomax. Assessment & Plan (04/15/2018 4:47 PM FOUNDER AND CHIEF TECHNICAL OFFICER): Had similar problems in August 2017 and was started on Flomax Pt reports he is not on this medication Lab was ordered for PSA but patient did not get it done Gave pt. Lab for PSA Needs to call the office and go over list of medication to see if he has the Flomax Will treat for potential UTI and send Urine CX Sleep disturbances 12/03/2017 Assessment & Plan (12/03/2017 4:18 PM CDT): Continues with elevated BP Snores Wakes up tired, fatigue Has had sinus surgery in the past per pt. For some sort of snoring or breathing issues with sleep. Hx of Stroke Refer to Dr. Hull Closed fracture of distal end of tibia 8 Overview (10/19/2017): IMPRESSION: 1. SMALL CORTICAL IRREGULARITY/LUCENCY POSTERIOR MALLEOLUS. RECENT FRACTURE POSSIBLE. CORRELATION WITH POINT TENDERNESS RECOMMENDED. 2. LUCENT FOCUS DISTAL TIBIA. PSEUDO-LESION VERSUS LUCENT/LYTIC LESION. MRI OR PULMONARY SCAN COULD BE CONSIDERED. 3. DEGENERATIVE CHANGES. BMI 29.0-29.9,adult 10/16/2017 Assessment & Plan (04/30/2018 9:49 AM FOUNDER AND CHIEF TECHNICAL OFFICER): Diet= low-carb Talked to patient and his about lifestyle changes in diet and exercise. Avoid white pasta, rice, potatoes.Discussed portion control, eat more vegetables and lean meats, less starches and carbs Limit white bread, rice, pasta, potatoes, juice, energy drinks, coffee creamers with sugar, sugar sodas, candy, cake, cookies, ice cream. Be more careful with starchy vegetables like corn, carrots, and fruits. Stay away from processed foods, fast foods, fried foods. The cornerstone of this diet is lean grilled meats, green salads or cooked greens, fat-free milk, cottage cheese, nuts like [id number], protein bars with 10-15 g of protein and 20-30 g of carbohydrate. Choose whole grain breads and pastas, brown rice, sweet potatoes, read onions--these whole grains absorb more slowly thus blood sugar does not surge so high so quickly. Avoid drinking juice, eat a piece of fruit instead. Assessment & Plan (04/15/2018 4:44 PM FOUNDER AND CHIEF TECHNICAL OFFICER): Diet= low-carb Limit white bread, rice, pasta, potatoes, juice, energy drinks, coffee creamers with sugar, sugar sodas, candy, cake, cookies, ice cream. Be more careful with starchy vegetables like corn, carrots, and fruits. Stay away from processed foods, fast foods, fried foods. The cornerstone of this diet is lean grilled meats, green salads or cooked greens, fat-free milk, cottage cheese, nuts like fxudjng-[id number], protein bars with 10-15 g of protein and 20-30 g of carbohydrate. Choose whole grain breads and pastas, brown rice, sweet potatoes, read onions--these whole grains absorb more slowly thus blood sugar does not surge so high so quickly. Avoid drinking juice, eat a piece of fruit instead. Assessment & Plan (12/03/2017 3:53 PM CDT): Diet-Many types of diets produce modest weight loss. Options include balanced low-calorie, low-fat low-calorie, moderate-fat low-calorie, low-carbohydrate diets, and the Mediterranean diet. Dietary adherence is an important predictor of weight loss, regardless of the type of diet. Exercise -- Although less potent than dietary restriction in promoting weight loss, increasing energy expenditure through physical activity is a strong predictor of weight loss maintenance. Physical activity should be performed for approximately 30 minutes or more, five to seven days a week, to prevent weight gain and to improve cardiovascular health. Behavior modification or behavior therapy is one cornerstone in the treatment for obesity. The goal of behavioral therapy is to help patients make long-term changes in their eating behavior by modifying and monitoring their food intake, modifying their physical activity, and controlling cues and stimuli in the environment that trigger eating. At least 30 minutes a day for at least 5 days a week for a total of 150 minutes a week or moderate-intensity activity! Something is always better than nothing! Assessment & Plan (11/12/2017 2:30 PM CDT): Diet= low-carb Limit white bread, rice, pasta, potatoes, juice, energy drinks, coffee creamers with sugar, sugar sodas, candy, cake, cookies, ice cream. Be more careful with starchy vegetables like corn, carrots, and fruits. Stay away from processed foods, fast foods, fried foods. The cornerstone of this diet is lean grilled meats, green salads or cooked greens, fat-free milk, cottage cheese, nuts like btuvzyg-[id number]-agzrwhn, protein bars with 10-15 g of protein and 20-30 g of carbohydrate. Choose whole grain breads and pastas, brown rice, sweet potatoes, read onions--these whole grains absorb more slowly thus blood sugar does not surge so high so quickly. Avoid drinking juice, eat a piece of fruit instead. Assessment & Plan (10/16/2017 8:34 PM CDT): Diet= low-carb Limit white bread, rice, pasta, potatoes, juice, energy drinks, coffee creamers with sugar, sugar sodas, candy, cake, cookies, ice cream. Be more careful with starchy vegetables like corn, carrots, and fruits. Stay away from processed foods, fast foods, fried foods. The cornerstone of this diet is lean grilled meats, green salads or cooked greens, fat-free milk, cottage cheese, nuts like ceglgpc-zpzyema-lrslptr, protein bars with 10-15 g of protein and 20-30 g of carbohydrate. Choose whole grain breads and pastas, brown rice, sweet potatoes, read onions--these whole grains absorb more slowly thus blood sugar does not surge so high so quickly. Avoid drinking juice, eat a piece of fruit instead. Sprain of right ankle 10/15/2017 Assessment & Plan (11/14/2017 10:29 AM CDT): Pt. Saw Ortho and was given a brace. Unable to put on because of his neck Recommend getting a simple one from [facility] or somewhere else Wear brace and elevate to help with swelling Assessment & Plan (10/15/2017 3:21 PM CDT): You can apply ice or heat for 20min- 4times/day to affected area You may use and joshua bandage, if it is an extremity that can be wrapped Elevate the affected area if possible Tylenol/Motrin for pain Follow up with your PCP if you are not getting better. If you notice any numbness, coldness or change in color to the affected extremity- go to ER REST, ICE, COMPRESSION, ELEVATION X-ray F/U with primary care doctor in 1 week. Limit weight bearing to right foot and ankle. Use brace. Can use Crutches as tolerated. Do light stretching and range of motion exercises as tolerated. Neck pain 10/10/2017 Assessment & Plan (12/03/2017 4:27 PM CDT): Hx of C4 L lateral mass fx. Weaned from C-collar Recent Cervical X-ray showed: IMPRESSION: 1. Unchanged mild to moderate multisegment subaxial cervical degenerative disc disease. Having some neck stiffness, occasional discomfort and some left shoulder/trapezius tightness. At times patient has a hard time sleeping. Pt. Wondering why he doesn't have any physical therapy ordered. Will order PT for patient to have more education of stretching, strengthening and improvement of ROM. He does have DDD in his cervical area. Closed nondisplaced fracture of fourth cervical vertebra with routine healing 10/10/2017 Assessment & Plan (11/14/2017 10:30 AM CDT): Neck collar in place Regular f/u with Ortho spine Serial x-rays to check status of fracture Will start PT soon Assessment & Plan (10/16/2017 8:45 PM CDT): Last MRI 09/04/17 showing: IMPRESSION: 1. Previously identified fracture of the left lateral mass of C4 not apparent on the current exam. 2. No vertebral body fractures or wedge compression deformities Seen. 3. Moderate central canal narrowing at C3-C4 and C4-C5. 4. Neural foraminal narrowing at multiple levels. Presents today with neck collar in place Acute maxillary sinusitis 01/25/2016 Overview (07/12/2016): Acute maxillary sinusitis, recurrence not specified Assessment & Plan (12/23/2018 6:09 PM CDT): Complete abx sent. Reviewed abx Ses & scheduling. Aware to complete full course. To continue mucinex/sinus otc medications. Antihistamines (zyrtec, ayde, claritin, benadryl) for runny nose Discussed nasal saline rinses/neti pots. Push fluids. Reviewed red flags; what would warrant rtc. Tobacco use 01/25/2016 Overview (07/12/2016): Tobacco use Assessment & Plan (03/17/2019 1:45 PM FOUNDER AND CHIEF TECHNICAL OFFICER): Encouraged to stop smoking. Assessment & Plan (10/16/2017 8:36 PM CDT): Quit Smoking https://smokefree.gov/ Nicotine replacement therapy (NRT) is the most commonly used family of quit smoking medications. NRT reduces withdrawal feelings by giving you a small controlled amount of nicotine?but none of the other dangerous chemicals found in cigarettes. This small amount of nicotine helps satisfy your craving for nicotine and reduces the urge to smoke. NRT can t do all the work. It can help with withdrawal and cravings. But it won t completely take away the urge to smoke. Even if you use NRT to help you stop smoking, quitting can still be hard. Combining NRT with other strategies can improve your chances of quitting and staying quit. To give yourself the best chance for success, explore other quit methods you can combine with medication. Also think about: Developing a quit plan. Using quit programs such as SmokefreeTXT or calling a quitline. Using the idemama yun for tips and inspiration to help you be smokefree. Prepare, Reduce creavings and Triggers, Reduce stress, Get Active, Eat Healthy Gum, Patches, Inhaler, lozenges, nasal spray or medications like Wellbutrin, Chantix Remind yourself of the rewards of quitting to help yourself stay on track: 20 minutes: heart rate, blood pressure drop 12 hours: carbon monoxide in blood stream drops to normal 2 weeks-3 months: circulation, lung function improve; heart attack risk begins to drop 1-9 months: cough less, breathe easier 1 year: risk of coronary heart disease cut in half 2-5 years: risk of cancer of mouth, throat, esophagus, bladder cut in half; stroke risk is reduced to that of a nonsmoker 10 years: half as likely to from lung cancer; risk of kidney or pancreatic cancer decreases 15 years: risk of coronary heart disease same as non-smoker s risk EXTRA MONEY Would like to quit Recommend trying nicotine gum alternating with regular gum Cigarette smoker 08/21/2015 Overview (07/12/2016): Cigarette smoker Sinusitis 07/11/2014 Overview (07/12/2016): Sinusitis Assessment & Plan (03/17/2019 1:45 PM FOUNDER AND CHIEF TECHNICAL OFFICER): Will await response to antibiotic. Assessment & Plan (12/03/2017 4:17 PM CDT): Needs to Stop Smoking Complete antibiotics and other meds as prescribed Doxycycline twice a day Take OTC decongestants for congestion- Sudafed/Mucinex Motrin/Tylenol for pain/fever If you have high blood pressure or any kidney disease use Tylenol only. Take an Antihistamines like Zyrtec or Claritin or Ayde daily at bedtime for the next 2-3 weeks. Can take Benadryl at bedtime for the next 3-4 days for immediate relief of runny nose and may help with sinus headache. Try saline nasal spray irrigations 2-4 times a day or try using Paulette pot as directed daily then use your Flonase or other corticosteroid nasal spray every day to decrease the swelling and inflammation in your nasal cavities. Drink plenty of water & get plenty of rest A humidifier may also help with congestion Follow up with your PCP in 3-5 days if you are not getting better Assessment & Plan (10/15/2017 3:21 PM CDT): Complete antibiotics and other meds as prescribed Take OTC decongestants for congestion- Sudafed/Mucinex Motrin/Tylenol for pain/fever If you have high blood pressure or any kidney disease use Tylenol only. Take an Antihistamines like Zyrtec or Claritin or Ayde daily at bedtime for the next 2-3 weeks. Can take Benadryl at bedtime for the next 3-4 days for immediate relief of runny nose and may help with sinus headache. Try saline nasal spray irrigations 2-4 times a day or try using Paulette pot as directed daily then use your Flonase or other corticosteroid nasal spray every day to decrease the swelling and inflammation in your nasal cavities. Drink plenty of water & get plenty of rest A humidifier may also help with congestion Follow up with your PCP in 3-5 days if you are not getting better Allergic conjunctivitis 02/11/2014 Overview (07/12/2016): Allergic conjunctivitis Assessment & Plan (10/21/2019 4:46 PM CDT): Manish funes Tobacco dependence 12/27/2013 Overview (07/12/2016): Tobacco dependence syndrome Assessment & Plan (08/05/2023 2:43 PM CDT): PRecontemplative. ENocurage 150min/week aerobic exericse. Healthy food chocies. WIll montior response. Assessment & Plan (02/13/2019 7:52 PM FOUNDER AND CHIEF TECHNICAL OFFICER): Precontemplative. Encouraged complete smoking cessation. Discussed different types of medications & qjbh-pcd-iejyyqs aides to help with cessation. Assessment & Plan (04/30/2018 10:00 AM FOUNDER AND CHIEF TECHNICAL OFFICER): Tobacco use is unchanged. Smoking cessation counseling was provided. Tobacco use will be reassessed at the next regular appointment. Assessment & Plan (04/15/2018 4:44 PM FOUNDER AND CHIEF TECHNICAL OFFICER): Tobacco use is unchanged. Smoking cessation counseling was provided. Tobacco use will be reassessed at the next regular appointment. Encouraged to quit Down to 5-6 cig per day Assessment & Plan (12/03/2017 3:52 PM CDT): Tobacco use is unchanged. Smoking cessation counseling was provided. Tobacco use will be reassessed at the next regular appointment. Down to 5 cigarettes per day Assessment & Plan (11/14/2017 10:23 AM CDT): Tobacco use is unchanged. Smoking cessation counseling was provided. Tobacco use will be reassessed at the next regular appointment Down to 5 a day Quit Smoking https://smokefree.gov/ Nicotine replacement therapy (NRT) is the most commonly used family of quit smoking medications. NRT reduces withdrawal feelings by giving you a small controlled amount of nicotine?but none of the other dangerous chemicals found in cigarettes. This small amount of nicotine helps satisfy your craving for nicotine and reduces the urge to smoke. NRT can t do all the work. It can help with withdrawal and cravings. But it won t completely take away the urge to smoke. Even if you use NRT to help you stop smoking, quitting can still be hard. Combining NRT with other strategies can improve your chances of quitting and staying quit. To give yourself the best chance for success, explore other quit methods you can combine with medication. Also think about: Developing a quit plan. Using quit programs such as SmokefreeTXT or calling a quitline. Using the idemama yun for tips and inspiration to help you be smokefree. Prepare, Reduce creavings and Triggers, Reduce stress, Get Active, Eat Healthy Gum, Patches, Inhaler, lozenges, nasal spray or medications like Wellbutrin, Chantix Remind yourself of the rewards of quitting to help yourself stay on track: 20 minutes: heart rate, blood pressure drop 12 hours: carbon monoxide in blood stream drops to normal 2 weeks-3 months: circulation, lung function improve; heart attack risk begins to drop 1-9 months: cough less, breathe easier 1 year: risk of coronary heart disease cut in half 2-5 years: risk of cancer of mouth, throat, esophagus, bladder cut in half; stroke risk is reduced to that of a nonsmoker 10 years: half as likely to from lung cancer; risk of kidney or pancreatic cancer decreases 15 years: risk of coronary heart disease same as non-smoker s risk EXTRA MONEY Encouraged to try to cut back . Benign hypertension 08/21/2013 Overview (07/12/2016): BENIGN HYPERTENSION Assessment & Plan (12/03/2017 4:16 PM CDT): Pt. Blood pressure is elevated and has been over the last couple months here in the office. Will start him on Lopressor 25 mg twice a day He needs to get a new blood pressure machine to monitor his BP and bring readings in with him next visit in January. Also refer to Dr. Hull for sleep evaluation. Hypertension is unchanged. Medication changes per orders. Blood pressure will be reassessed in 3 months. Lifestyle changes can help you control and prevent high blood pressure, even if you're taking blood pressure medication. Here's what you can do: Eat healthy foods. Eat a healthy diet. Try the Dietary Approaches to Stop Hypertension (DASH) diet, which emphasizes fruits, vegetables, whole grains, poultry, fish and low-fat dairy foods. Get plenty of potassium, which can help prevent and control high blood pressure. Eat less saturated fat and trans fat. Decrease the salt in your diet. A lower sodium level -- 1,500 milligrams (mg) a day -- is appropriate for people 51 years of age or older, and individuals of any age who are black or who have hypertension, diabetes or chronic kidney disease. Maintain a healthy weight. Keeping a healthy weight, or losing weight if you're overweight or obese, can help you control your high blood pressure and lower your risk of related health problems. If you're overweight, losing even 5 pounds (2.3 kilograms) can lower your blood pressure. Increase physical activity. Regular physical activity can help lower your blood pressure, manage stress, reduce your risk of several health problems and keep your weight under control. Limit alcohol. Even if you're healthy, alcohol can raise your blood pressure. If you choose to drink alcohol, do so in moderation. For healthy adults, that means up to one drink a day for women of all ages and men older than age 65, and up to two drinks a day for men age 65 and younger. One drink equals 12 ounces of beer, 5 ounces of wine or 1.5 ounces of 80-proof liquor. Don't smoke. Tobacco injures blood vessel wheatley and speeds up the process of hardening of the arteries. If you smoke, ask your doctor to help you quit. Manage stress. Reduce stress as much as possible. Practice healthy coping techniques, such as muscle relaxation, deep breathing or meditation. Getting regular physical activity and plenty of sleep can help, too. Notify the office for blood pressure greater than 130/80 Assessment & Plan (11/12/2017 2:33 PM CDT): Hypertension is unchanged. Continue current treatment regimen. Blood pressure will be reassessed at the next regular appointment. Lifestyle changes can help you control and prevent high blood pressure, even if you're taking blood pressure medication. Here's what you can do: Eat healthy foods. Eat a healthy diet. Try the Dietary Approaches to Stop Hypertension (DASH) diet, which emphasizes fruits, vegetables, whole grains, poultry, fish and low-fat dairy foods. Get plenty of potassium, which can help prevent and control high blood pressure. Eat less saturated fat and trans fat. Decrease the salt in your diet. A lower sodium level -- 1,500 milligrams (mg) a day -- is appropriate for people 51 years of age or older, and individuals of any age who are black or who have hypertension, diabetes or chronic kidney disease. Maintain a healthy weight. Keeping a healthy weight, or losing weight if you're overweight or obese, can help you control your high blood pressure and lower your risk of related health problems. If you're overweight, losing even 5 pounds (2.3 kilograms) can lower your blood pressure. Increase physical activity. Regular physical activity can help lower your blood pressure, manage stress, reduce your risk of several health problems and keep your weight under control. Limit alcohol. Even if you're healthy, alcohol can raise your blood pressure. If you choose to drink alcohol, do so in moderation. For healthy adults, that means up to one drink a day for women of all ages and men older than age 65, and up to two drinks a day for men age 65 and younger. One drink equals 12 ounces of beer, 5 ounces of wine or 1.5 ounces of 80-proof liquor. Don't smoke. Tobacco injures blood vessel wheatley and speeds up the process of hardening of the arteries. If you smoke, ask your doctor to help you quit. Manage stress. Reduce stress as much as possible. Practice healthy coping techniques, such as muscle relaxation, deep breathing or meditation. Getting regular physical activity and plenty of sleep can help, too. Notify the office for blood pressure greater than 130/80 Check Blood pressure at home and bring readings Assessment & Plan (10/16/2017 8:37 PM CDT): Hypertension is unchanged. Continue current treatment regimen. Stop smoking. Blood pressure will be reassessed in 3 months Lifestyle changes can help you control and prevent high blood pressure, even if you're taking blood pressure medication. Here's what you can do: Eat healthy foods. Eat a healthy diet. Try the Dietary Approaches to Stop Hypertension (DASH) diet, which emphasizes fruits, vegetables, whole grains, poultry, fish and low-fat dairy foods. Get plenty of potassium, which can help prevent and control high blood pressure. Eat less saturated fat and trans fat. Decrease the salt in your diet. A lower sodium level -- 1,500 milligrams (mg) a day -- is appropriate for people 51 years of age or older, and individuals of any age who are black or who have hypertension, diabetes or chronic kidney disease. Maintain a healthy weight. Keeping a healthy weight, or losing weight if you're overweight or obese, can help you control your high blood pressure and lower your risk of related health problems. If you're overweight, losing even 5 pounds (2.3 kilograms) can lower your blood pressure. Increase physical activity. Regular physical activity can help lower your blood pressure, manage stress, reduce your risk of several health problems and keep your weight under control. Limit alcohol. Even if you're healthy, alcohol can raise your blood pressure. If you choose to drink alcohol, do so in moderation. For healthy adults, that means up to one drink a day for women of all ages and men older than age 65, and up to two drinks a day for men age 65 and younger. One drink equals 12 ounces of beer, 5 ounces of wine or 1.5 ounces of 80-proof liquor. Don't smoke. Tobacco injures blood vessel wheatley and speeds up the process of hardening of the arteries. If you smoke, ask your doctor to help you quit. Manage stress. Reduce stress as much as possible. Practice healthy coping techniques, such as muscle relaxation, deep breathing or meditation. Getting regular physical activity and plenty of sleep can help, too. Notify the office for blood pressure greater than 130/80 . Hyperlipidemia 08/21/2013 Overview (07/13/2016): HYPERLIPIDEMIA NEC/NOS Anxiety disorder 04/15/2013 Overview (07/12/2016): Anxiety disorder Assessment & Plan (11/14/2017 10:23 AM CDT): Psychological condition is improving with treatment. Continue current treatment regimen. Psychological condition will be reassessed in 3 months. Continue Citalopram, Buspar Hypertension 03/18/2013 Overview (07/12/2016): Hypertension Assessment & Plan (03/17/2019 2:20 PM FOUNDER AND CHIEF TECHNICAL OFFICER): Elevated today due to coughing and not feeling well overall. States he feels sick and when he feels like this his blood pressure does elevate. Overall he is stable and will await follow-up visit in 2 weeks. Continue current prescribed medication. Assessment & Plan (04/30/2018 9:59 AM FOUNDER AND CHIEF TECHNICAL OFFICER): Hypertension is unchanged. Weight loss. Blood pressure will be reassessed in 4 weeks. Hx of stroke, now DM2, HLD, Smoker Encouraged to quit smoking, loss wt. Continue ASA 81 mg, Lisinopril, Pt. Was to start Metoprolol for elevated HR and BP but never did get it filled Assessment & Plan (11/14/2017 10:27 AM CDT): Hypertension is worsening. Stop smoking. Blood pressure will be reassessed in 3 months.Pt BP has been above 130/80 at several visits. Talked to patient about his diet-try to eat more fresh fruit, vege's and lean meats. Pt. Eat's a lot of microwave meals. Pt. Is going to monitor and document readings and bring to next appointment. May need to make an adjustment to medications-add diuretic or beta-alberto Lifestyle changes can help you control and prevent high blood pressure, even if you're taking blood pressure medication. Here's what you can do: Eat healthy foods. Eat a healthy diet. Try the Dietary Approaches to Stop Hypertension (DASH) diet, which emphasizes fruits, vegetables, whole grains, poultry, fish and low-fat dairy foods. Get plenty of potassium, which can help prevent and control high blood pressure. Eat less saturated fat and trans fat. Decrease the salt in your diet. A lower sodium level -- 1,500 milligrams (mg) a day -- is appropriate for people 51 years of age or older, and individuals of any age who are black or who have hypertension, diabetes or chronic kidney disease. Maintain a healthy weight. Keeping a healthy weight, or losing weight if you're overweight or obese, can help you control your high blood pressure and lower your risk of related health problems. If you're overweight, losing even 5 pounds (2.3 kilograms) can lower your blood pressure. Increase physical activity. Regular physical activity can help lower your blood pressure, manage stress, reduce your risk of several health problems and keep your weight under control. Limit alcohol. Even if you're healthy, alcohol can raise your blood pressure. If you choose to drink alcohol, do so in moderation. For healthy adults, that means up to one drink a day for women of all ages and men older than age 65, and up to two drinks a day for men age 65 and younger. One drink equals 12 ounces of beer, 5 ounces of wine or 1.5 ounces of 80-proof liquor. Don't smoke. Tobacco injures blood vessel wheatley and speeds up the process of hardening of the arteries. If you smoke, ask your doctor to help you quit. Manage stress. Reduce stress as much as possible. Practice healthy coping techniques, such as muscle relaxation, deep breathing or meditation. Getting regular physical activity and plenty of sleep can help, too. Notify the office for blood pressure greater than 130/80 Resolved Problems Problem Noted Date Diagnosed Date Resolved Date Lytic bone lesions on xray 10/19/2017 0 11/14/2017 Assessment & Plan (10/19/2017 4:34 PM CDT): IMPRESSION: 1. SMALL CORTICAL IRREGULARITY/LUCENCY POSTERIOR MALLEOLUS. RECENT FRACTURE POSSIBLE. CORRELATION WITH POINT TENDERNESS RECOMMENDED. 2. LUCENT FOCUS DISTAL TIBIA. PSEUDO-LESION VERSUS LUCENT/LYTIC LESION. MRI OR PULMONARY SCAN COULD BE CONSIDERED. 3. DEGENERATIVE CHANGES. Type 2 diabetes mellitus wit h hyperlipidemia ([facility]/HCC) 06/25/2017 09/22/2022 Assessment & Plan (10/21/2019 4:46 PM CDT): No diabetic retinopathy (DR) . Stressed importance of tight blood glucose control/ diet/exercise and A1C <7% to reduce the risk of diabetic complications. Report sent to PCP/endo. Assessment & Plan (02/13/2019 7:54 PM FOUNDER AND CHIEF TECHNICAL OFFICER): POCT today: a1c=6.4% Mtd=138. Lab Results Component Value Date HGBA1C 6.4% 02/12/2019 HGBA1C 6.4 (H) 04/16/2018 HGBA1C 6.1 (H) 07/11/2017 Reviewed dietary/exercise recommendations. Instructed to perform daily foot check. Reviewed medication side effects & scheduling. To check/record FSBS & bring to appointments. Labs ordered; will call with results when received. To make follow up appointment in 3 months. Reviewed red flags; what would warrant further evaluation. Assessment & Plan (04/30/2018 9:54 AM FOUNDER AND CHIEF TECHNICAL OFFICER): Diabetes is newly identified. Medication changes per orders. Diabetes will be reassessed in 1 month. A1C increasing over the last year-from prediabetes to diabetes. Will start metformin once a day and will titrate up for A1C less than 6. Pt. At high risk related to his co-morbidities with already having stroke, htn, hld, smoker. Will have patient check blood sugars Clinic nurse to educate patient on how to check blood sugars. Pt. Would benefit from rn diabetes educator. Unsure how much patient retains with hx of Stroke. Explained the risk of uncontrolled blood sugars Reviewed labs with patient and his . Spent 30 minutes of the 45 minutes educating patient Assessment & Plan (04/15/2018 4:48 PM FOUNDER AND CHIEF TECHNICAL OFFICER): Urinary Frequency A1c elevated in past Not on any DM2 meds Hx of Stroke, HTN, Smoking Has Glucose in Urine dipstick Check A1C Acute serous otitis media 06/29/2015 Overview (07/12/2016): Acute serous otitis media of left ear, recurrence not specified Immunizations Immunization Administration Dates Next Due Influenza, Quadrivalent, Spl it, Intramuscular 01/26/2015 Influenza, Quadrivalent, Spl it, Preservative Free, Intramuscular 01/14/2023,03/05/2022,01/09/2021,02/13,02/12/2019,02/12/2017 Influenza, Split 01/09/2012,02/09/2010 Influenza, Trivalent, IM (MDV) 4,02/05/2013,01/24/2013,02/28 Influenza, Unspecified 01/14/2023(Deferr ed: Patient Refused),04/07/2022(Deferred: Patient Refused),05/29/2018(Deferred: Patient Refused),04/29/2018(Deferred: Patient Refused),04/15/2018(Deferred: Patient Refused),04/07/2018(Deferred: Patient Refused),12/03/2017(Deferred: Patient Refused),04/08/2017(Deferred: Patient Refused),12/13/2016(Deferred: Patient decision),04/07/2016(Deferred: Patient Refused) Tdap 06/07/2016 Social History Tobacco Use Types Packs/Day Years Used Date Smoking Tobacco: Every Day Cigarettes 0.5 10 Smokeless Tobacco: Never Comments:Smoking History Pac ks/day: 0.5 Packs Alcohol Use Standard Drinks/Week Comments Yes 0 (1 standard drink = 0.6 oz pur e alcohol) very little PHQ-2 Answer Date Recorded PHQ-2 Total Score (If total score is 3 or more points, staff should administer the PHQ-9) 0 08/05/2023 Sex and Gender Information Value Date Recorded Sex Assigned at Not on file Legal Sex Male 4:19 PM FOUNDER AND CHIEF TECHNICAL OFFICER Gender Identity Not on file Sexual Orientation Not on file Last Filed Vital Signs Vital Sign Reading Time Taken Comments Blood Pressure 138/84 12/15/2023 1:20 PM CDT Pulse 76 12/15/2023 1:20 PM CDT Temperature 36.9 C (98.4 F) 12/15/2023 1:20 PM CDT Respiratory Rate 16 12/15/2023 1:20 PM CDT Oxygen Saturation 97% 12/15/2023 1:20 PM CDT Inhaled Oxygen Concentration - - Weight 71.7 kg (158 lb) 12/15/2023 1:20 PM CDT Height 170.2 cm (5' 7) 12/15/2023 1:20 PM CDT Body Mass Index 24.75 12/15/2023 1:20 PM CDT Plan of Treatment Not on file Procedures Procedure Name Priority Date/Time Associated Diagnosis Comments EGFR Routine 08/05/2023 2:36 PM CDT Controlled type 2 diabetes mellitus with hyperglycemia, without long-term current use of insulin (HCC) HEMOGLOBIN A1C Routine 08/05/2023 2:36 PM CDT Controlled type 2 diabetes mellitus with hyperglycemia, without long-term current use of insulin (HCC) LIPID PANEL Routine 08/05/2023 2:36 PM CDT Controlled type 2 diabetes mellitus with hyperglycemia, without long-term current use of insulin (HCC) ALBUMIN CREATININE RATIO, URINE Routine 01/14/2023 3:06 PM CDT Type 2 diabetes mellitus with hyperlipidemia (HCC) PSA SCREEN Routine 01/14/2023 3:06 PM CDT Prostate cancer screening STOOL DNA COLOGUARD Routine 11/07/2021 9:00 PM CDT Colon cancer screening HM COLONOSCOPY Routine 01/04/2009 from Last 3 Months or Most Recently Relevant to Health Maintenance Results * eGFR (08/05/2023 2:36 PM CDT) eGFR >90 >=60 mL/min/1. 73 m2 Comment: Interpretive Data Reference Interval Normal >/= 90 mL/min/1.73m2 Mildly decreased* 60 - 89 mL/min/1.73m2 Mildly to moderately decreased 45 - 59 mL/min/1.73m2 Moderately to severely decreased 30 - 44 mL/min/1.73m2 Severely decreased 15 - 29 mL/min/1.73m2 Kidney Failure < 15 mL/min/1.73m2 *Relative to young adult level Estimated glomerular filtration rate is determined by the 2020 CKD-EPI equation recommended by the National Kidney Foundation (A Unifying Approach to GFR Estimation: Recommendations of the NKF-ASK Task Force on Reassessing the Inclusion of Race in Diagnosing Kidney Disease, JASN 2020). The CKD-EPI equation should not be used for patients with unstable renal function and has not been validated in children and those over 70. Current interpretive data was last reviewed 2021. Blood 08/05/2023 2:36 PM CDT 08/05/2023 8:54 PM CDT Rocco Blackwood MD LAB BLOOD ORDERABLES Kourtney l Result Performing Organization Address [facility] de Phone Number SMITA [id number] [place] [address] * (ABNORMAL) Hemoglobin A1c (08/05/2023 2:36 PM CDT) Hgb A1C 6.7(H) 4.0 - 5.6 % Estimated Average Glucose 146 mg/dL SMITA HA Comment: The ADA recommends reporting an estimated Average Glucose (eAG) with all Hemoglobin A1c results using the equation derived from a study of 507 normal and diabetic adults. Minority populations were underrepresented and children were not included. (Diabetes Care 31:6733-0519, 2008). The eAG is not equivalent to a fasting glucose. Blood 08/05/2023 2:36 PM CDT 08/05/2023 8:52 PM CDT Rocco Blackwood MD LAB BLOOD ORDERABLES Kourtney l Result Performing Organization Address [facility] de Phone Number SMITA [phone] [employer] [place] [place] [address] * Lipid panel (08/05/2023 2:36 PM CDT) Cholesterol 157 30 - 199 mg/dL Comment: Interpretive Data Ages < or = 19 years Acceptable: <170 mg/dL Borderline high: 170-199 mg/dL High: >or= 200 mg/dL Ages > or = 20 years Desirable: <200 mg/dL Borderline high: 200-239 mg/dL High: >or= 240 mg/dL Literature References: 1. Expert Panel on Integrated Guidelines for Cardiovascular Health and Risk Reduction in Children and Adolescents. Pediatrics 2011;128:S213 2. NCEP Expert Panel. Circulation 2004;110:227 Current Interpretive Data was last revised on 2017. Triglycerides 92 <=149 mg/dL SMITA HA Comment: Interpretive Data Ages < or = 9 years Acceptable: <75 mg/dL Borderline high: 75-99 mg/dL High: >or= 100 mg/dL Ages 10 to 20 years Acceptable: <90 mg/dL Borderline high: 90-129 mg/dL High: >or= 130 mg/dL Ages > or = 20 years Desirable: <150 mg/dL Borderline high: 150-199 mg/dL High: 200-499 mg/dL Very high: >or= 499 mg/dL Literature References: 1. Expert Panel on Integrated Guidelines for Cardiovascular Health and Risk Reduction in Children and Adolescents. Pediatrics 2011;128:S213 2. NCEP Expert Panel. Circulation 2003;110:227 Current Interpretive Data was last revised on 2017. HDL 49 >=40 mg/dL SMITA HA Comment: Interpretive Data Ages < or = 19 years Acceptable: >45 mg/dL Borderline low: 40-45 mg/dL Low: <40 mg/dL Ages > or = 20 years Desirable: >or= 60 mg/dL Low: <40 mg/dL Literature References: 1. Expert Panel on Integrated Guidelines for Cardiovascular Health and Risk Reduction in Children and Adolescents. Pediatrics 2011;128:S213 2. NCEP Expert Panel. Circulation 2003;110:227 Current Interpretive Data was last revised on 2017. LDL, calculated 90 <=129 mg/dL SMITA HA Comment: Interpretive Data Ages < or = 19 years Acceptable: <110 mg/dL Borderline high: 110-129 mg/dL High: >or= 130 mg/dL Ages > or = 20 years Optimal: <100 mg/dL Near optimal: 100-129 mg/dL Borderline high: 130-159 mg/dL High: >160 mg/dL Literature References: 1. Expert Panel on Integrated Guidelines for Cardiovascular Health and Risk Reduction in Children and Adolescents. Pediatrics 2011;128:S213 2. NCEP Expert Panel. Circulation 2004;110:227 Current Interpretive Data was last revised on 2017. Non-HDL Cholesterol 108 mg/dL SMITA HA Comment: Interpretive Data Ages < or = 19 years Acceptable: <120 mg/dL Borderline high: 120-144 mg/dL High: >145 mg/dL Ages > or = 20 years When triglycerides are >200 mg/dL, Non-HDL cholesterol is a secondary target of therapy with treatment goals that are 30 mg/dL greater than the LDL cholesterol target. Literature References: 1. Expert Panel on Integrated Guidelines for Cardiovascular Health and Risk Reduction in Children and Adolescents. Pediatrics 2011;128:S213 2. NCEP Expert Panel. Circulation 2004;110:227 Current Interpretive Data was last revised on 2017. Chol/HDL ratio 3 [facility] Blood 08/05/2023 2:36 PM CDT 08/05/2023 8:52 PM CDT Rocco Blackwood MD LAB BLOOD ORDERABLES Kourtney l Result Performing Organization Address [facility] de Phone Number [facility] [id number] [place] [address] * PSA screen (01/14/2023 3:06 PM CDT) PSA-Total 1.47 <=5.40 ng/mL Comment: Interpretive Data AGE SEX REFERENCE INTERVAL 0 minutes-150 years Female None 0 minutes-49 years Male None 50-59 years Male 0-3.90 60-69 years Male 0-5.40 70-79 years Male 0-6.20 80-150 years Male 0-6.20 The [employer] PSA Total assay procedure was used. Results from different manufacturers or methods may not be comparable. Serial testing should be performed using the same method. Current interpretive data last revised 21. Blood 01/14/2023 3:06 PM CDT 01/14/2023 7:00 PM CDT Rocco Blackwood MD LAB BLOOD ORDERABLES Kourtney l Result Performing Organization Address [facility] Co de Phone Number [facility] [id number] [place], [place] [id number] * Albumin Creatinine Ratio, Urine (01/14/2023 3:06 PM CDT) Albumin Ur 18.8 mg/L Comment: Interpretive Data No reference range established. Current interpretive data was last revised 2018. Creatinine Ur 92.7 mg/dL [facility] Comment: Interpretive Data No reference range established. Current interpretive data was last revised 2018. Albumin Creatinine Ratio, Ur 20 1 - 29 mg/g [facility] Urine 01/14/2023 3:06 PM CDT 01/14/2023 7:00 PM CDT us Rocco Blackwood MD LAB URINE ORDERABLES Kourtney arpit Result [facility] [address] Department [place] [address] * Stool DNA - Cologuard (11/07/2021 9:00 PM CDT) Pathologist [facility] Stool DNA - Cologuard Negative Negative [facility] (CLIA #:[id number]) Comment: NEGATIVE TEST RESULT. A negative Cologuard result indicates a low likelihood that a colorectal cancer (CRC) or advanced adenoma (adenomatous polyps with more advanced pre-malignant features) is present. The chance that a person with a negative Cologuard test has a colorectal cancer is less than 1 in 1500 (negative predictive value >99.9%) or has an advanced adenoma is less than 5.3% (negative predictive value 94.7%). These data are based on a prospective cross-sectional study of 10,000 individuals at average risk for colorectal cancer who were screened with both Cologuard and colonoscopy. (Martín Cho et al, N Engl J Med 2014;370(14):4161-5304) The normal value (reference range) for this assay is negative. COLOGUARD RE-SCREENING RECOMMENDATION: Periodic colorectal cancer screening is an important part of preventive healthcare for asymptomatic individuals at average risk for colorectal cancer. Following a negative Cologuard result, the [place] Cancer Society and U.S. Multi-Society Task Force screening guidelines recommend a Cologuard re-screening interval of 3 years. References: [place] [employer] Guideline for Colorectal Cancer Screening: https://www.cancer.org/cancer/ldbbq-zdzmsi-xwislo/pbbobegds-lbuwjceeh-giczjmh/ac s-rec ommendations.html.; Chilango DK, Kev CR, Chantel BarajasK, Colorectal Cancer Screening: Recommendations for Physicians and Patients from the U.S. Multi-Society Task Force on Colorectal Cancer Screening , Am J Gastroenterology 2017; 112:1435-8904. TEST DESCRIPTION: Composite algorithmic analysis of stool DNA-biomarkers with hemoglobin immunoassay. Quantitative values of individual biomarkers are not reportable and are not associated with individual biomarker result reference ranges. Cologuard is intended for colorectal cancer screening of adults of either sex, 45 years or older, who are at average-risk for colorectal cancer (CRC). Cologuard has been approved for use by the U.S. FDA. The performance of Cologuard was established in a cross sectional study of average-risk adults aged 50-84. Cologuard performance in patients ages 45 to 49 years was estimated by sub-group analysis of near-age groups. Colonoscopies performed for a positive result may find as the most clinically significant lesion: colorectal cancer [4.0%], advanced adenoma (including sessile serrated polyps greater than or equal to 1cm diameter) [20%] or non- advanced adenoma [31%]; or no colorectal neoplasia [45%]. These estimates are derived from a prospective cross-sectional screening study of 10,000 individuals at average risk for colorectal cancer who were screened with both Cologuard and colonoscopy. (Martín Amezcua al, N Engl J Med 2014;370(14):6939-8203.) Cologuard may produce a false negative or false positive result (no colorectal cancer or precancerous polyp present at colonoscopy follow up). A negative Cologuard test result does not guarantee the absence of CRC or advanced adenoma (pre-cancer). The current Cologuard screening interval is every 3 years. ([place] [employer] Society and U.S. Multi-Society Task Force). Cologuard performance data in a 10,000 patient pivotal study using colonoscopy as the reference method can be accessed at the following location: www.[employer].Livevol/results. Additional description of the Cologuard test process, warnings and precautions can be found at www.[email or web address].com. Stool 11/07/2021 9:00 PM CDT 11/09/2021 5:33 PM CDT us Rocco Blackwood MD LAB BODY FLUIDS AND STOOL S ORDERABLES Final Result [facility] (CLIA #:[id number]) 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
--- OUTSIDE RECORDS SUMMARY | 2024-10-04 14:51 | XMS_ITS | Clinical Summary ---
Author Organization [facility] Healthcare Address [address] [place] [address] Care Team Providers Care Doorperson Or Luggage Porter Name Role Phone Unknown, Notinfile Unavailable Unavailable Brooke Pickering Primary Care Prov ider Allergies Active Allergy Reactions Criticality Noted Date Comments Cephalexin Angioedema High Reaction: face swelling, Penicillins Stomach upset Low Reaction: upset stomach, Medications aspirin 81 mg tablet take 1 tablet by oral route every day 0 0 7 Active chdijfpp-hehg-NS- calcium-mins 9 mg iron-200 mcg tablet 7 [...] Depression 12/29/2023 Controlled type 2 diabetes m chantell without complication, without long-term current use of [...] 02/12 Assessment & Plan (02/13/2019 7:55 PM COORDINATE MEASURING MACHINE TECHNICIAN): POCT lipid today: rx=622 hdl=48 LDL=84 Tc/hdl=3.3 Reviewed/explained results. Copy w/written explanations given to mr Clemens. Reviewed diet/activity recommendations. Need for influenza vaccination 02/12/2019 Assessment & Plan (02/13/2019 7:56 PM COORDINATE MEASURING MACHINE TECHNICIAN): Flu vaccine given today. Discussed possible tenderness/redness at injection site. BMI 28.0-28.9,adult 02/12/2019 Assessment & Plan (02/13/2019 7:56 PM COORDINATE MEASURING MACHINE TECHNICIAN): Reviewed need to lose weight, reviewed health benefits. Reviewed recommendations for daily intake & activity 20-30 minutes/day. Discussed healthy diet and importance of regular physical activity. Bronchitis 12/23/2018 Assessment & Plan (03/17/2019 1:44 PM COORDINATE MEASURING MACHINE TECHNICIAN): Responded well to breathing treatment. Assessment & [...] 04/15/2018 Assessment & Plan (02/13/2019 7:55 PM COORDINATE MEASURING MACHINE TECHNICIAN): PSA ordered; will call with results when received. Reviewed flomax for urinary concerns. Assessment & Plan (04/30/2018 10:01 AM COORDINATE MEASURING MACHINE TECHNICIAN): PSA ok No signs of UTI Really think urinary frequency is related to his diabetes Need blood sugars better controlled. Pt. Never started his Flomax Re-ordered Flomax. Assessment & Plan (04/15/2018 4:47 PM COORDINATE MEASURING MACHINE TECHNICIAN): Had similar problems in August 2017 and [...] 10/16/2017 Assessment & Plan (04/30/2018 9:49 AM COORDINATE MEASURING MACHINE TECHNICIAN): Diet= low-carb Talked to patient and his [...] greens, fat-free milk, cottage cheese, nuts like yjrpkah-sjicwqo-hcjpvbw, protein bars with 10-15 g of protein and 20-30 g of carbohydrate. Choose whole grain breads and pastas, brown rice, sweet potatoes, read onions--these whole grains absorb more slowly thus blood sugar does not surge so high so quickly. Avoid drinking juice, eat a piece of fruit instead. Assessment & Plan (04/15/2018 4:44 PM COORDINATE MEASURING MACHINE TECHNICIAN): Diet= low-carb Limit white bread, rice, pasta, potatoes, juice, energy drinks, coffee creamers with sugar, sugar sodas, candy, cake, cookies, ice cream. Be more careful with starchy vegetables like corn, carrots, and fruits. Stay away from processed foods, fast foods, fried foods. The cornerstone of this diet is lean grilled meats, green salads or cooked greens, fat-free milk, cottage cheese, nuts like rhjtrcf-cxzhbic-opjqsmf, protein bars with 10-15 g of protein [...] greens, fat-free milk, cottage cheese, nuts like ayziawv-tvnjotn-vzzmtky, protein bars with 10-15 g of protein [...] greens, fat-free milk, cottage cheese, nuts like rhhqqaj-ppbvpix-cxfgxwa, protein bars with 10-15 g of protein [...] neck Recommend getting a simple one from [facility] or somewhere else Wear brace and [...] use Assessment & Plan (03/17/2019 1:45 PM COORDINATE MEASURING MACHINE TECHNICIAN): Encouraged to stop smoking. Assessment & Plan [...] SmokefreeTXT or calling a quitline. Using the [employer] yun for tips and inspiration to help [...] Sinusitis Assessment & Plan (03/17/2019 1:45 PM COORDINATE MEASURING MACHINE TECHNICIAN): Will await response to antibiotic. Assessment & [...] response. Assessment & Plan (02/13/2019 7:52 PM COORDINATE MEASURING MACHINE TECHNICIAN): Precontemplative. Encouraged complete smoking cessation. Discussed different types of medications & ikbu-qpj-rovupzg aides to help with cessation. Assessment & Plan (04/30/2018 10:00 AM COORDINATE MEASURING MACHINE TECHNICIAN): Tobacco use is unchanged. Smoking cessation counseling was provided. Tobacco use will be reassessed at the next regular appointment. Assessment & Plan (04/15/2018 4:44 PM COORDINATE MEASURING MACHINE TECHNICIAN): Tobacco use is unchanged. Smoking cessation counseling [...] SmokefreeTXT or calling a quitline. Using the [employer] yun for tips and inspiration to help [...] be reassessed in 3 months. Continue Citalopram, Babaksean Hypertension 03/18/2013 Overview (07/12/2016): Hypertension Assessment & Plan (03/17/2019 2:20 PM COORDINATE MEASURING MACHINE TECHNICIAN): Elevated today due to coughing and not feeling well overall. States he feels sick and when he feels like this his blood pressure does elevate. Overall he is stable and will await follow-up visit in 2 weeks. Continue current prescribed medication. Assessment & Plan (04/30/2018 9:59 AM COORDINATE MEASURING MACHINE TECHNICIAN): Hypertension is unchanged. Weight loss. Blood pressure [...] Type 2 diabetes mellitus wit h hyperlipidemia ([facility]) 06/25/2017 09/22/2022 Assessment & Plan (10/21/2019 4:46 PM CDT): No diabetic retinopathy (DR) . Stressed importance of tight blood glucose control/ diet/exercise and A1C <7% to reduce the risk of diabetic complications. Report sent to PCP/endo. Assessment & Plan (02/13/2019 7:54 PM COORDINATE MEASURING MACHINE TECHNICIAN): POCT today: a1c=6.4% Khk=010. Lab Results Component Value Date HGBA1C 6.4% [...] evaluation. Assessment & Plan (04/30/2018 9:54 AM COORDINATE MEASURING MACHINE TECHNICIAN): Diabetes is newly identified. Medication changes per [...] check blood sugars. Pt. Would benefit from life educator. Unsure how much patient retains with hx of Stroke. Explained the risk of uncontrolled blood sugars Reviewed labs with patient and his . Spent 30 minutes of the 45 minutes educating patient Assessment & Plan (04/15/2018 4:48 PM COORDINATE MEASURING MACHINE TECHNICIAN): Urinary Frequency A1c elevated in past Not on any DM2 meds Hx of Stroke, HTN, Smoking Has Glucose in Urine dipstick Check A1C Acute serous otitis media 06/29/2015 Overview (07/12/2016): Acute serous otitis media of left ear, recurrence not specified Encounters Date Type Department Care Team Description 07/21/2024 Telephone [facility] Care Organization [address] [place] [id number] Ngozi Francis Unsuccessful Phone Call 1 ([employer] dm eye exam) from Last 3 Months Immunizations Immunization Administration Dates Next Due Influenza, Quadrivalent, Spl it, Intramuscular 01/26/2015 Influenza, Quadrivalent, Spl it, Preservative Free, Intramuscular 01/14/2023,03/05/2022,01/09/2021,02/13,02/12/2019,02/12/2017 Influenza, Split 01/09/2012,02/09/2010 Influenza, Trivalent, IM (MDV) 4,02/05/2013,01/24/2013,02/28 Influenza, Unspecified 01/14/2023(Deferr ed: Patient Refused),04/07/2022(Deferred: Patient Refused),05/29/2018(Deferred: Patient Refused),04/29/2018(Deferred: Patient Refused),04/15/2018(Deferred: Patient Refused),04/07/2018(Deferred: Patient Refused),12/03/2017(Deferred: Patient Refused),04/08/2017(Deferred: Patient Refused),12/13/2016(Deferred: Patient decision),04/07/2016(Deferred: Patient Refused) Tdap 06/07/2016 Surgical History Surgery Date Site/Laterality Comments TONSILLECTOMY 04/07/1974 - 04/06/1975 Tonsillectomy CATARACT EXTRACTION Right Cataract extraction OTHER SURGICAL HISTORY 04/07/2013 - 04/06/2014 Stroke: Medical Management RETINA SURGERY REtina surgery OTHER SURGICAL HISTORY 04/07/2003 - 04/06/2004 Deviated nasal septum: septoplasty EYE SURGERY Medical History Medical History Date Comments Anxiety disorder Anxiety Hx Other Medical Prostatitis Hx Other Medical Chronic Hematur ia Hx Other Medical 1976 R eye retinal d etachment repair Hx Other Medical Septoplasty 200 6 Hx Other Medical hemorrhoids Hypertension Hypertension History of multiple allergies Al lergies Diabetes mellitus (HCC) Diabetes Cerebrovascular accident (CVA) (HCC) 05/10/2013 Stroke; Outcome: improved Deviated nasal septum Deviated n dayami septum Depression Family History Medical History Relation Name Comments Coronary artery disease Father Jorge nary artery disease; /Coronary artery disease; Hypertension Father Hypertension; Kidney disease Father Lymphoma Father Cancer -lymphom a; renal carcinoma Father Hypertension Mother Hypertension; Hypertension Other 1 Family history of Hypertension; Lymphoma Other 2 Family history of Lymphoma; Relation Name Status Comments Father Alive Mother Alive Other 1 Other 2 Social History Tobacco Use Types Packs/Day Years [...] on file Legal Sex Male 4:19 PM COORDINATE MEASURING MACHINE TECHNICIAN Gender Identity Not on file Sexual Orientation Not on file Obstetrics History Last Filed Vital Signs Vital Sign Reading [...] 12/15/2023 1:20 PM CDT Plan of Treatment Health Maintenance Due Date Last Done Comments Hepatitis C Screening 1960 Hepatitis B Screening 1976 Pneumococcal vaccine 65+ (1 of 2 - PCV) 1977 Colon Cancer Screening-Colonoscopy 01/04/2019 01/04/2009 Dilated Eye Exam 10/20/2020 10/21/2019 Foot Exam 05/29/2022 05/29/2021, 04/08, 05/29/2018 Abdominal Aortic Aneurysm (AAA) Screen 2023 Albumin Creatinine Ratio, Urine 01/15/2024 01/14/2023, 08/07/2021 Hemoglobin A1C 02/04/2024 08/05/2023, 01/05, 07/05/2022, Additional history exists Depression Screening 08/04/2024 08/05/2023, 06/11/2023, 04/29/2023, Additional history exists Fall Risk Assessment 08/04/2024 08/05/2023, 06/11/2023, 04/29/2023, Additional history exists Lipid Panel 08/04/2024 08/05/2023, 01/05, 07/05/2022, Additional history exists Well Visit 65+ 08/04/2024 08/05/2023, 05/09, 11/13/2021, Additional history exists eGFR 08/04/2024 08/05/2023, 01/05, 07/05/2022, Additional history exists Influenza Vaccine (Season Ended) 2024 01/14/2023, 03/05/2022, 01/09/2021, Additional history exists Zoster Vaccine (1 of 2) 12/28/2024 Post poned from 2008 (Patient declined, but will receive in the future) Prostate Cancer Screening-PSA 01/14/2025 01/14/2023, 08/07/2021, 09/15/2020, Additional history exists DTaP/Tdap/Td Vaccine (2 - Td or Tdap) 06/07/2026 06/07/2016 Colon Cancer Screening-CT Colonography Discontinued 01/04/2009 Colon Cancer Screening-Sigmoidoscopy Discontinued 01/04/2009 Colon Cancer Screening-DNA Stool Discontinued 11/07/2021, 01/04/2009 Colon Cancer Screening-FIT Discontinued 11/07/2021, Procedures Procedure Name Priority Date/Time Associated Diagnosis [...] Rocco Blackwood MD LAB BLOOD ORDERABLES [place] [id number] [address] Department [place] [address] * (ABNORMAL) Hemoglobin A1c (08/05/2023 2:36 PM CDT) Hgb A1C 6.7(H) 4.0 - 5.6 % Estimated Average Glucose 146 mg/dL [facility] Comment: The ADA recommends reporting an estimated Average Glucose (eAG) with all Hemoglobin A1c results using the equation derived from a study of 507 normal and diabetic adults. Minority populations were underrepresented and children were not included. (Diabetes Care 31:0874-5603, 2008). The eAG is not equivalent to a fasting glucose. Blood 08/05/2023 2:36 PM CDT 08/05/2023 8:52 PM CDT us Rocco Blackwood MD LAB BLOOD ORDERABLES [place] [id number] [address] Department [place] [address] * Lipid panel (08/05/2023 2:36 PM CDT) [...] last revised on 2017. Chol/HDL ratio 3 [facility] Blood 08/05/2023 2:36 PM CDT 08/05/2023 8:52 PM CDT us Rocco Blackwood MD LAB BLOOD ORDERABLES Kourtney [place] [id number] Nancy Department [place] [address] * PSA screen (01/14/2023 3:06 PM CDT) [...] ORDERABLES Kourtney l Result Performing Organization Address [facility] Co de Phone Number SMITA [phone] [address] [place], [place] [id number] * Albumin Creatinine Ratio, Urine (01/14/2023 3:06 PM CDT) Pathologist [facility] Albumin Ur 18.8 mg/L Comment: Interpretive Data No reference range established. Current interpretive data was last revised 2018. Creatinine Ur 92.7 mg/dL [facility] Comment: Interpretive Data No reference range established. Current interpretive data was last revised 2018. Albumin Creatinine Ratio, Ur 20 1 - 29 mg/g [facility] Urine 01/14/2023 3:06 PM CDT 01/14/2023 7:00 PM CDT Rocco Blackwood MD LAB URINE ORDERABLES Kourtney l Result Performing Organization Address [facility] Co de Phone Number SMITA [phone] [address] [facility] [place] [address] * Stool DNA - Cologuard (11/07/2021 9:00 PM CDT) Pathologist [facility] Stool DNA - Cologuard Negative Negative [facility] (CLIA #:[id number]) Comment: NEGATIVE TEST RESULT. A negative Cologuard [...] Cho et al, N Engl J Med 2014;370(14):0106-3511) The normal value (reference range) for this assay is negative. COLOGUARD RE-SCREENING RECOMMENDATION: Periodic colorectal cancer screening is an important part of preventive healthcare for asymptomatic individuals at average risk for colorectal cancer. Following a negative Cologuard result, the [place] [employer] and U.S. Multi-Society Task Force screening guidelines recommend a Cologuard re-screening interval of 3 years. References: [place] [employer] Guideline for Colorectal Cancer Screening: https://www.cancer.org/cancer/arunc-xgzmsh-yaknpk/thhcnuhpc-cqmlqetdp-homirro/ac s-rec ommendations.html.; Chilango WYLIE, Kev ESTRADA, Chantel BarajasK, Colorectal Cancer Screening: Recommendations for Physicians and Patients from the U.S. Multi-Society Task Force on Colorectal Cancer Screening , Am J Gastroenterology 2017; 112:5563-6609. TEST DESCRIPTION: Composite algorithmic analysis of stool [...] Cho et al, N Engl J Med 2014;370(14):0471-0978.) Cologuard may produce a false negative or false positive result (no colorectal cancer or precancerous polyp present at colonoscopy follow up). A negative Cologuard test result does not guarantee the absence of CRC or advanced adenoma (pre-cancer). The current Cologuard screening interval is every 3 years. ([place] [employer] Society and U.S. Multi-Society Task Force). Cologuard performance data in a 10,000 patient pivotal study using colonoscopy as the reference method can be accessed at the following location: www.[employer]/results. Additional description of the Cologuard test process, warnings and precautions can be found at www.[employer].com. Stool 11/07/2021 9:00 PM CDT 11/09/2021 5:33 PM CDT Rocco Blackwood MD LAB BODY FLUIDS AND STOOL S ORDERABLES Final Result [facility] (CLIA #:[id number]) [place] [address] [address] * COLONOSCOPY (01/04/2009) Colonoscopy Abnormal Comment:2 polyps [email or web address] [email or web address], repeat 5 yrs Alberto Provider HEALTH MAINTENANCE Final Result from Last 3 Months or Most Recently Relevant to Health Maintenance Insurance [facility] MEDICARE HMO Care Teams Doorperson Or Luggage Porter Relationship Specialty Start Date End Date Brooke Pickering PA [address] [facility] [address] [address] PCP - General Neurosurgery 09/09/24 Unknown, Notinfile 08/29/17
== END 2024-10-04 15:09 | disposition home or self-care (01) ==
PROVIDERS: Emergency Provider Nurse Practitioner; PCP Physician Assistant
DX: H73.892 Other specified disorders of tympanic membrane, left ear (principal); J06.9 Acute upper respiratory infection, unspecified; I10 Essential (primary) hypertension; F17.210 Nicotine dependence, cigarettes, uncomplicated
CPT/HCPCS: 99213; G0463

== ENCOUNTER 2024-12-10 14:05 | Emergency (ER) | payer MEDICARE, SELFPAY ==
[2024-12-10 14:12] VITALS: BP 154/73; PULSE 78; RESP 18; TEMP 36.9; O2SAT 98
--- OUTSIDE RECORDS SUMMARY | 2024-12-10 14:12 | XMS_ITS | Clinical Summary ---
Author Organization [facility] Address [address] [place] [address] Phone Care Team Providers Care Crimper Operator Name Role Phone Brooke Pickering PAC Primary Care Pro vider Catalino Gleason APRN, FIBER OPTIC ASSEMBLER Unavailable [phone] Allergies Active Allergy Reactions Criticality Noted Date Comments Cephalexin Swelling High 01/15/2024 Reaction: face swelling, Penicillins Unknown Medications busPIRone (BUSPAR) 5 MG Tablet Take 1 Tablet by mouth 2 times daily. 60 Tablet 2 01/15/20 24 025 Active rosuvastatin (CRESTOR) 20 MG Tablet Take 1 Tablet by mouth daily. 90 Tablet 01/15/20 24 Active amLODIPine (NORVASC) 10 MG Tablet Take 1 Tablet by mouth daily. 90 Tablet 03/08/20 24 Active albuterol 108 (90 Base) MCG/ACT Aerosol Solution take 2 Puffs by inhalation every 4 hours as needed for Wheezing. 18 g 04/29/19 25 Active aspirin EC 81 MG Tablet Delayed Response Take 1 Tablet by mouth daily. 07/05/19 17 Active buPROPion (WELLBUTRIN) 75 MG Tablet Take 2 Tablets by mouth daily. 30 Tablet 2 07/21/19 25 Active glipiZIDE (GLUCOTROL) 5 MG Tablet Take 1 tablet by mouth once daily with breakfast 90 Tablet 10/20/19 25 Active solifenacin (VESICARE) 10 MG TabletIndication s:Urge incontinence of urine Take 1 Tablet by mouth daily. 30 Tablet 1 10/26/19 25 Active terazosin (HYTRIN) 1 MG CapsuleIndicatio ns:Urge incontinence of urine Take 2 Capsules by mouth nightly. 120 Capsule 10/26/19 25 Active lisinopril (PRINIVIL, ZESTRIL) 40 MG Tablet Take 1 tablet by mouth once daily 90 Tablet 12/01/19 25 Active lisinopril (PRINIVIL, ZESTRIL) 40 MG Tablet Take 1 Tablet by mouth daily. 90 Tablet 09/04/19 25 025 Discontinued Active Problems Problem Noted Date Diagnosed Date [...] Encounters Date Type Department Care Team Description 11/30/2024 Refill [facility] - [facility] Medicine [facility] [address] [place] [phone] Brooke Pickering, PAULA Medication Refill 10/25/2024 1:45 PM CDT Office Visit [facility] [address] [place] [address] Catalino Gleason, CONCRETE TRUCK DRIVER, FIBER OPTIC ASSEMBLER Urge incontinence of urine (Primary Dx); Family history of kidney cancer Discharge Disposition: Discharged to home or Selfcare 10/25/2024 Travel 10/19/2024 [facility]ill [facility] - [facility] - [place] [address] [place] [phone] Brooke Pickering, PAULA Medication Refill 10/14/2024 [facility] [address] [place] [phone] Brooke Pickering, PAULA 09/27/2024 1:45 PM CDT Office Visit [facility] [address] [place] [phone] Catalino Gleason APRN, LORRAINE Urge incontinence of urine (Primary Dx); Family history of kidney cancer Discharge Disposition: Discharged to home or Selfcare 09/27/2024 Travel 09/22/2024 2:30 PM CDT Office Visit [facility] [address] [place] [phone] Brooke Pickering, PAULA Chronic sinusitis, unspecified location (Primary Dx); Skin lesion Discharge Disposition: Discharged to home or Selfcare 09/22/2024 Travel 09/21/2024 [facility] [address] [place] [phone] Brooke Pickering PAC Sinus Problem 09/21/[address] [phone] Brooke Pickering, PAULA [facility] [address] [phone] Brooke Pickering, PAULA 09/20/2024 [facility] [address] [place] [phone] Brooke Pickering PAC Appointment (/) from Last 3 Months Immunizations Immunization Administration [...] 0.6 oz pur e alcohol) [facility] [employer] Answer Date Recorded In the past 12 months has e [employer], gas, oil, or water company threatened to shut off services in your home? No 06/23/2024 Social Connection and Isolation Panel Answer Date Recorded In a typical week, how many times do you talk on the phone with family, friends, or neighbors? Twice a week 06/23/2024 How often do you get together with friends or re latives? Once a week 06/23/2024 How often do you attend yazdanism or tenriism serv ices? Never 06/23/2024 Do you belong to any clubs o r organizations such as yazdanism groups, unions, fraternal or athletic groups, or [...] Total Score - Questions 1-9 2 05/09 [facility] of Occupat ional Health - Occupational Stress [...] any time in the past 12 m [facility], were you homeless or living in a prison (including now)? No 06/23/2024 Sex and Gender Information Value Date Recorded Sex Assigned at Not on file Legal Sex Male 8:06 PM CDT Gender Identity Not on file Sexual Orientation Not on file Last Filed Vital Signs Vital Sign Reading Time Taken Comments Blood Pressure 150/81 10/25/2024 1:45 PM CDT Pulse 82 10/25/2024 1:45 PM CDT Temperature 36.6 C (97.8 F) 09/22/2024 2:14 PM CDT Respiratory Rate 16 10/25/2024 1:45 PM CDT Oxygen Saturation 98% 10/25/2024 1:45 PM CDT Inhaled Oxygen Concentration - - Weight 73.9 kg (163 lb) 10/25/2024 1:45 PM CDT Height 170.2 cm (5' 7) 10/25/2024 1:45 PM CDT Body Mass Index 25.53 10/25/2024 1:45 PM CDT Plan of Treatment Upcoming Encounters Date Type Department Care Team (Late st Contact Info) Description 12/20/2024 2:15 PM CDT Office Visit [facility] [address] [place] [phone] Catalino Gleason APRN, FIBER OPTIC ASSEMBLER [address] [place] [address] Health Maintenance Due Date Last Done Comments Diabetes: Eye Exam 1958 Diabetes: Foot Exam 1960 Hepatitis C Virus (HCV) Screening 1960 Pneumococcal Immunization (50+ years) (1 of 2 - PCV) 1977 Cologuard 2003 Colonoscopy 2003 Colorectal Cancer Screening 2003 Immunochemical Fecal Occult Blood 2003 Zoster Immunization (1 of 2) 2008 AAA Screening Ultrasound 2023 Diabetes: Hemoglobin A1c 09/09/2024 03/11/2024, 04/3 Influenza Immunization (#1) 2024 11/0 11/2023, 01/14/2023, 03/05/2022, Additional history exists SARS-COV-2 Immunization ( - season) 2024 07/15/2020 Diabetes: Nephropathy Screening 03/11/2025 03/11/2024 Td Immunization Every 10 Years (Adults With 1 Tdap) 06/07/2026 06/07/2016 Respiratory Syncytial Virus (RSV) Immunization (Adult) (1 - 1-dose 75+ series) 2033 DTaP/Tdap/Td Immunization Discontinued 06/07/2016 TdaP Immunization Discontinued 06/07/2016 PSA Discussion Completed 03/11/2024 Hepatitis B Immunization [...] Procedure Name Priority Date/Time Associated Diagnosis Comments POCT UA AUTOMATED W/O MICRO Routine 10/25/2024 1:49 PM CDT Urge incontinence of urine JOSETTE,POST-VOID RES,US,NON-IMAGING Routine 09/27/2024 1:45 PM CDT Urge incontinence of urine CMP (COMPREHENSIVE METABOLIC PANEL) Routine 03/11/2024 3:05 PM PEANUT PICKER Primary hypertension HEMOGLOBIN A1C W/ ESTIMATED GLUCOSE Routine 03/11/2024 3:05 PM PEANUT PICKER Primary hypertension Abnormal finding of blood chemistry, unspecified PSA SCREEN Routine 03/11/2024 3:05 PM PEANUT PICKER Prostate cancer screening from Last 3 Months or Most Recently Relevant to Health Maintenance Results * (ABNORMAL) POCT UA AUTOMATED W/O MICRO (10/25/2024 1:49 PM CDT) POC UA SPECIFIC GRAVITY 1.005 URINE PH 7.0 5.0 - 9.0 POC URINE LEUKOCYTES 25 /ul(A) Negative Yash/uL POC URINE NITRITE Negative Negative POC URINE PROTEIN Negative Negative mg/dL POC URINE GLUCOSE Norm Negative, Norm mg/dL POC URINE KETONE Negative Negative mg/dL POC URINE UROBILINOGEN Norm Norm, 0.2 E.U./dL (mg/dL), 1 E.U./dL (mg/dL) POC URINE BILIRUBIN Negative Negative mg/dL POC URINE BLOOD INSTRUMENT 50 Fredrick/uL(A) Negative Fredrick/uL POC URINE COLOR Yellow POC URINE CLARITY Clear 10/25/2024 1:49 PM CDT Catalino Gleason CONCRETE TRUCK DRIVER, FIBER OPTIC ASSEMBLER POINT OF CARE TESTING (MANUAL) Final Result * JOSETTE,POST-VOID RES,US,NON-IMAGING (09/27/2024 1:45 PM CDT) Narrative FreddyLona pandey - 09/27/2024 1:45 PM CDT Lona Hayes 10/01/2024 8:39 AM POCT Bladder Scan collected per standing order of Wilson Gleason on 10/01/2024 PVR= 138 ML Catalino L Victorino CONCRETE TRUCK DRIVER, FIBER OPTIC ASSEMBLER ND - SURGERY Final Result * HEMOGLOBIN A1C W/ ESTIMATED GLUCOSE (03/11/2024 3:05 PM PEANUT PICKER) Pathologist [facility] HGB-A1C 5.9 4.0 - 6.0 % 03/11/2024 3:59 PM PEANUT PICKER [facility] Est Average Glucose 122.6 mg/dL 03/11/2024 3:59 PM PEANUT PICKER [facility] Blood Venipuncture / Unknown 03/11/2024 3:05 PM PEANUT PICKER 03/11/2024 3:41 PM PEANUT PICKER Narrative [facility] - 03/11/2024 3:59 PM PEANUT PICKER HEMOGLOBIN A1C: DIABETIC PATIENTS: WELL-CONTROLLED: 6.2 - 7.0 INTERMEDIATE WELL-CONTROLLED: 7.0 - 9.0 POORLY-CONTROLLED: >9.0 Brooke Pickering PAC CHEMISTRY ORDERAB LES Final Result [facility] [address] [place] [address] * PSA SCREEN (03/11/2024 3:05 PM PEANUT PICKER) Pathologist [facility] PSA SCREEN, TOTAL 1.32 <4.00 ng/mL 03/11/2024 4:23 PM PEANUT PICKER [facility] Blood Venipuncture / Unknown 03/11/2024 3:05 PM PEANUT PICKER 03/11/2024 3:42 PM PEANUT PICKER Narrative [facility] - 03/11/2024 4:23 PM PEANUT PICKER The ALINITY Total PSA assay is a Chemiluminescent Microparticle Immunoassay (CMIA) for the quantitative determination of total PSA (both free PSA and PSA complexed to [id number]) in human serum. Total PSA values obtained with different assay methods, including Barreto PSA assays, cannot be used interchangeably. Brooke Pickering PAC CHEMISTRY ORDERAB LES Final Result [facility] [address] [place] [address] * (ABNORMAL) CMP (COMPREHENSIVE METABOLIC PANEL) (03/11/2024 3:05 PM PEANUT PICKER) SODIUM 140 136 - 145 mmol/L 03/11/2024 4:06 PM [facility] POTASSIUM 3.9 3.5 - 5.1 mmol/L 03/11/2024 4:06 PM [facility] CHLORIDE 104 98 - 107 mmol/L 03/11/2024 4:06 PM [facility] CO2, VENOUS 27 22 - 30 mmol/L 03/11/2024 4:06 PM [facility] ANION GAP 12.9 <18.0 mmol/L 03/11/2024 4:06 PM [facility] GLUCOSE 221(H) 70 - 99 mg/dL 03/11/2024 4:06 PM [facility] BUN 19 8 - 26 mg/dL 03/11/2024 4:06 PM [facility] CREATININE, BLOOD 0.85 0.70 - 1.30 mg/dL 03/11/2024 4:06 PM [facility] BUN/CREATININE RATIO 22(H) 12 - 20 ratio 03/11/2024 4:06 PM [facility] TOTAL PROTEIN 6.7 6.3 - 8.2 g/dL 03/11/2024 4:06 PM [facility] ALBUMIN 4.0 3.5 - 5.0 g/dL 03/11/2024 4:06 PM [facility] A/G RATIO 1.5 1.0 - 2.2 03/11/2024 4:06 PM [facility] CALCIUM 9.5 8.7 - 10.5 mg/dL 03/11/2024 4:06 PM [facility] T BILI 0.7 0.2 - 1.2 mg/dL 03/11/2024 4:06 PM [facility] SGOT (AST) 17 5 - 34 U/L 03/11/2024 4:06 PM [facility] SGPT (ALT) 30 0 - 55 U/L 03/11/2024 4:06 PM [facility] ALKALINE PHOSPHATASE 77 40 - 150 U/L 03/11/2024 4:06 PM [facility] IS THE PATIENT REQUIRED TO BE FASTING? No 03/11/2024 4:06 PM [facility] GFR, ESTIMATED >60 >=60 03/11/2024 4:06 PM [facility] Comment: Creatinine Clearance is the preferred criteria for selecting drug dose adjustments in renally impaired patients. The GFR is provided as additional pertinent clinical information. GFR is reported in mL/min/1.73 sq m. Calculation based on the Chronic Kidney Disease Epidemiology Collaboration (CKD- EPI) equation refit without adjustment for race. GFR, EST. >60 >=60 024 4:06 PM [facility] GFR, EST. NONAFRICAN >60 >=60 03/11/2024 4:06 PM [facility] Blood Venipuncture / Unknown 03/11/2024 3:05 PM PEANUT PICKER 03/11/2024 3:41 PM PEANUT PICKER us Brooke Pickering PAC CHEMISTRY ORDERAB LES Final Result [facility] [address] [place] [address] from Last 3 Months or Most Recently Relevant to Health Maintenance Insurance MEDICARE C [employer] Care Teams Crimper Operator Relationship Specialty Start Date End Date Brooke Pickering PAC PCP - General Physician Inventory Analyst 01/15/24 Catalino Gleason, CONCRETE TRUCK DRIVER, FIBER OPTIC ASSEMBLER [address] [place] [address] Nurse Practitioner Advanced Practice Nurse 08/05/24
--- OUTSIDE RECORDS SUMMARY | 2024-12-10 14:12 | XMS_ITS | Encounter Summary ---
Author Organization [facility] Address [address] [place] [address] Phone Care Team Providers Care Claims Manager Name Role Phone Brooke Pickering Primary Care Pro vider Catalino Gleason APRN, SLOT KEY PERSON Unavailable [phone] Reason for Visit * Reason Onset Date Comments Sinus Problem 09/21/2024 Encounter Details Date Type Department Care Team (Late st Contact Info) Description 09/21/2024 Nurse Triage [facility] [address] [place] [address] Brooke Pickering, PAC [address] [place] [address] Sinus Problem Social History Tobacco Use Types Packs/Day Years Used Date Smoking Tobacco: Every Day Cigarettes Smokeless Tobacco: Never Alcohol Use Standard Drinks/Week Comments Yes 0 (1 standard drink = 0.6 oz pur e alcohol) [facility] Utilities Answer Date Recorded In the past 12 months has [email or web address], gas, oil, or water [employer] threatened to shut off services in your home? No 06/23/2024 Social Connection and Isolation Panel Answer Date Recorded In a typical week, how many times do you talk on the phone with family, friends, or neighbors? Twice a week 06/23/2024 How often do you get together with friends or re latives? Once a week 06/23/2024 How often do you attend anglican or shinto serv ices? Never 06/23/2024 Do you belong to any clubs o r organizations such as anglican groups, unions, fraternal or athletic groups, or [...] Total Score - Questions 1-9 2 05/09 [facility] of Occupat ional [facility] - Occupational Stress Questionnaire Answer Date Recorded [...] any time in the past 12 m [facility], were you homeless or living in a mcc (including now)? No 06/23/2024 Sex and Gender [...] Disposition: Earache Protocols Used: Sinus Pain or [id number]-[id number] Medication, allergies, and pharmacy reviewed. Care advice provided per triage guideline. Caller verbalized understanding. Appointment Scheduled. All Patient Appointments Date & Time Provider Department Dept Phone 09/22/2024 2:30 PM Brooke Pickering [facility] - Internal Medicine - [place] [phone] 09/27/2024 1:45 PM [facility] [phone] Encounter routed to provider to notify. Discussed utilizing [employer] to: E-check in prior to upcoming appointment [...] Description 12/20/2024 2:15 PM CDT Office Visit [facility] [address] [place] [address] Catalino Gleason APRN, SLOT KEY PERSON [address] [place] [address] documented as of this encounter Visit Diagnoses Not on filedocumented in this encounter Additional Health Concerns Assessment Noted Time PHQ-9 Depression Total Score: 2 06/02/19 12:54 PM STRINGED INSTRUMENT REPAIRER documented as of this encounter Care Teams Claims Manager Relationship Specialty Start Date End Date Brooke Pickering PAC PCP - General Physician Pewter Finisher 01/15/24 Catalino Gleason APRN, SLOT KEY PERSON [address] [place] [address] Nurse Practitioner Advanced Practice Nurse 08/05/24 documented as of this encounter
--- OUTSIDE RECORDS SUMMARY | 2024-12-10 14:12 | XMS_ITS | Clinical Summary ---
Author Organization [facility] Healthcare Address [address] [place] [address] Care Team Providers Care Director Of Valuation Name Role Phone Unknown, Notinfile Unavailable Unavailable Brooke Pickering Primary Care Prov ider Allergies Active Allergy Reactions Criticality Noted Date Comments Cephalexin Angioedema High Reaction: face swelling, Penicillins Stomach upset Low Reaction: upset stomach, Medications aspirin 81 mg tablet take 1 tablet by oral route every day 0 0 7 Active uvoalarn-jieb-KN- calcium-mins 9 mg iron-200 mcg tablet 7 [...] times a day 90 tablet 1 4 Active Active Problems Problem Noted Date Diagnosed Date OCD (obsessive compulsive disorder) 12/29/2023 Depression 12/29/2023 Controlled type 2 diabetes m ellitus without complication, without long-term current use of [...] busprione to lexapro. Has been on the Death by Party in the past. UTI symptoms 08/25/2021 Assessment [...] 02/12 Assessment & Plan (02/13/2019 7:55 PM PHOTOGRAMMETRIC SURVEYOR): POCT lipid today: ej=775 hdl=48 LDL=84 Tc/hdl=3.3 Reviewed/explained results. Copy w/written explanations given to mr Clemens. Reviewed diet/activity recommendations. Need for influenza vaccination 02/12/2019 Assessment & Plan (02/13/2019 7:56 PM PHOTOGRAMMETRIC SURVEYOR): Flu vaccine given today. Discussed possible tenderness/redness at injection site. BMI 28.0-28.9,adult 02/12/2019 Assessment & Plan (02/13/2019 7:56 PM PHOTOGRAMMETRIC SURVEYOR): Reviewed need to lose weight, reviewed health benefits. Reviewed recommendations for daily intake & activity 20-30 minutes/day. Discussed healthy diet and importance of regular physical activity. Bronchitis 12/23/2018 Assessment & Plan (03/17/2019 1:44 PM PHOTOGRAMMETRIC SURVEYOR): Responded well to breathing treatment. Assessment & [...] 04/15/2018 Assessment & Plan (02/13/2019 7:55 PM PHOTOGRAMMETRIC SURVEYOR): PSA ordered; will call with results when received. Reviewed flomax for urinary concerns. Assessment & Plan (04/30/2018 10:01 AM PHOTOGRAMMETRIC SURVEYOR): PSA ok No signs of UTI Really think urinary frequency is related to his diabetes Need blood sugars better controlled. Pt. Never started his Flomax Re-ordered Flomax. Assessment & Plan (04/15/2018 4:47 PM PHOTOGRAMMETRIC SURVEYOR): Had similar problems in August 2017 and [...] 10/16/2017 Assessment & Plan (04/30/2018 9:49 AM PHOTOGRAMMETRIC SURVEYOR): Diet= low-carb Talked to patient and his [...] greens, fat-free milk, cottage cheese, nuts like wyfmqig-ihruvnb-zeqffbf, protein bars with 10-15 g of protein and 20-30 g of carbohydrate. Choose whole grain breads and pastas, brown rice, sweet potatoes, read onions--these whole grains absorb more slowly thus blood sugar does not surge so high so quickly. Avoid drinking juice, eat a piece of fruit instead. Assessment & Plan (04/15/2018 4:44 PM PHOTOGRAMMETRIC SURVEYOR): Diet= low-carb Limit white bread, rice, pasta, potatoes, juice, energy drinks, coffee creamers with sugar, sugar sodas, candy, cake, cookies, ice cream. Be more careful with starchy vegetables like corn, carrots, and fruits. Stay away from processed foods, fast foods, fried foods. The cornerstone of this diet is lean grilled meats, green salads or cooked greens, fat-free milk, cottage cheese, nuts like brxylha-spfaesj-rtagycc, protein bars with 10-15 g of protein [...] greens, fat-free milk, cottage cheese, nuts like shzrrvr-euacxbh-hhwrmnq, protein bars with 10-15 g of protein [...] greens, fat-free milk, cottage cheese, nuts like ehglwdk-ounffut-inyzxhy, protein bars with 10-15 g of protein [...] neck Recommend getting a simple one from [facility] or somewhere else Wear brace and [...] use Assessment & Plan (03/17/2019 1:45 PM PHOTOGRAMMETRIC SURVEYOR): Encouraged to stop smoking. Assessment & Plan [...] SmokefreeTXT or calling a quitline. Using the PoachIt yun for tips and inspiration to help [...] Sinusitis Assessment & Plan (03/17/2019 1:45 PM PHOTOGRAMMETRIC SURVEYOR): Will await response to antibiotic. Assessment & [...] response. Assessment & Plan (02/13/2019 7:52 PM PHOTOGRAMMETRIC SURVEYOR): Precontemplative. Encouraged complete smoking cessation. Discussed different types of medications & ixlm-rxa-guaoxug aides to help with cessation. Assessment & Plan (04/30/2018 10:00 AM PHOTOGRAMMETRIC SURVEYOR): Tobacco use is unchanged. Smoking cessation counseling was provided. Tobacco use will be reassessed at the next regular appointment. Assessment & Plan (04/15/2018 4:44 PM PHOTOGRAMMETRIC SURVEYOR): Tobacco use is unchanged. Smoking cessation counseling [...] SmokefreeTXT or calling a quitline. Using the PoachIt yun for tips and inspiration to help [...] Hypertension Assessment & Plan (03/17/2019 2:20 PM PHOTOGRAMMETRIC SURVEYOR): Elevated today due to coughing and not feeling well overall. States he feels sick and when he feels like this his blood pressure does elevate. Overall he is stable and will await follow-up visit in 2 weeks. Continue current prescribed medication. Assessment & Plan (04/30/2018 9:59 AM PHOTOGRAMMETRIC SURVEYOR): Hypertension is unchanged. Weight loss. Blood pressure [...] Type 2 diabetes mellitus wit h hyperlipidemia ([facility]) 06/25/2017 09/22/2022 Assessment & Plan (10/21/2019 4:46 PM CDT): No diabetic retinopathy (DR) . Stressed importance of tight blood glucose control/ diet/exercise and A1C <7% to reduce the risk of diabetic complications. Report sent to PCP/endo. Assessment & Plan (02/13/2019 7:54 PM PHOTOGRAMMETRIC SURVEYOR): POCT today: a1c=6.4% Pfu=357. Lab Results Component Value Date HGBA1C 6.4% [...] evaluation. Assessment & Plan (04/30/2018 9:54 AM PHOTOGRAMMETRIC SURVEYOR): Diabetes is newly identified. Medication changes per [...] check blood sugars. Pt. Would benefit from family life educator. Unsure how much patient retains with hx of Stroke. Explained the risk of uncontrolled blood sugars Reviewed labs with patient and his . Spent 30 minutes of the 45 minutes educating patient Assessment & Plan (04/15/2018 4:48 PM PHOTOGRAMMETRIC SURVEYOR): Urinary Frequency A1c elevated in past Not [...] on file Legal Sex Male 4:19 PM PHOTOGRAMMETRIC SURVEYOR Gender Identity Not on file Sexual Orientation [...] 01/05, 07/05/2022, Additional history exists Influenza Vaccine (#1) 2024 , 03/05/2022, 01/09/2021, Additional history exists Zoster Vaccine [...] LAB BLOOD ORDERABLES Kourtney munson Result [facility] [address] Department [place] [address] * (ABNORMAL) Hemoglobin A1c (08/05/2023 2:36 PM CDT) Hgb A1C 6.7(H) 4.0 - 5.6 % Estimated Average Glucose 146 mg/dL [facility] Comment: The ADA recommends reporting an estimated Average Glucose (eAG) with all Hemoglobin A1c results using the equation derived from a study of 507 normal and diabetic adults. Minority populations were underrepresented and children were not included. (Diabetes Care 31:2642-9370, 2008). The eAG is not equivalent to a fasting glucose. Blood 08/05/2023 2:36 PM CDT 08/05/2023 8:52 PM CDT us Rocco Blackwood MD LAB BLOOD ORDERABLES [place] [address] [address] [facility] [place] [address] * Lipid panel (08/05/2023 2:36 PM CDT) [...] revised on 2017. Chol/HDL ratio 3 [facility] Blood 08/05/2023 2:36 PM CDT 08/05/2023 8:52 PM CDT us Rocco Blackwood MD LAB BLOOD ORDERABLES Kourtney l Result [facility] [address] Department [place] [address] * PSA screen (01/14/2023 3:06 [...] ORDERABLES Kourtney l Result Performing Organization Address [facility] de Phone Number [facility] [address] [address] * Albumin Creatinine Ratio, Urine (01/14/2023 3:06 PM CDT) Albumin Ur 18.8 mg/L Comment: Interpretive Data No reference range established. Current interpretive data was last revised 2018. Creatinine Ur 92.7 mg/dL [facility] Comment: Interpretive Data No reference range established. Current interpretive data was last revised 2018. Albumin Creatinine Ratio, Ur 20 1 - 29 mg/g [facility] Urine 01/14/2023 3:06 PM CDT 01/14/2023 7:00 PM CDT Rocco Blackwood MD LAB URINE ORDERABLES Kourtney l Result Performing Organization Address [facility] de Phone Number [facility] [address] [facility] [place] [address] * Stool DNA - Cologuard (11/07/2021 9:00 PM CDT) Pathologist [facility] Stool DNA - Cologuard Negative Negative [facility] (CLIA #:[id number]) Comment: NEGATIVE TEST RESULT. A negative Cologuard [...] (Martín Amezcua al, N Engl J Med 2014;370(14):3637-1845) The normal value (reference range) for this [...] Cancer Society Guideline for Colorectal Cancer Screening: https://www.cancer.org/cancer/ikxor-mshovb-qfplyl/xovpeokaa-ylwjjgmic-yyjchhl/ac s-rec ommendations.html.; Chilango DK, Kev ESTRADA, Chantel BarajasK, Colorectal Cancer Screening: Recommendations for Physicians and Patients from the U.S. Multi-Society Task Force on Colorectal Cancer Screening , Am J Gastroenterology 2017; 112:2048-7894. TEST DESCRIPTION: Composite algorithmic analysis of stool [...] Cho et al, N Engl J Med 2014;370(14):0184-2416.) Cologuard may produce a false negative or [...] can be accessed at the following location: [email or web address]/results. Additional description of the Cologuard test process, warnings and precautions can be found at www.cologuard.Spunkmobile. Stool 11/07/2021 9:00 PM CDT 11/09/2021 5:33 PM CDT Rocco Blackwood MD LAB BODY FLUIDS AND STOOL S ORDERABLES Final Result [facility] (CLIA #:[id number]) [place] [place] [address] * COLONOSCOPY (01/04/2009) Colonoscopy Abnormal Comment:2 polyps rectosigmoi Miriam [email or web address], repeat 5 yrs Historical Provider HEALTH MAINTENANCE Final Result from Last 3 Months or Most Recently Relevant to Health Maintenance Insurance [employer] MEDICARE HMO [employer] MEDICARE HMO Care Teams Director Of Valuation Relationship Specialty Start Date End Date Brooke Pickering PA [address] [facility] [id number] [address] PCP - General Neurosurgery 09/09/24 Unknown, Notinfile 08/29/17
--- OUTSIDE RECORDS SUMMARY | 2024-12-10 14:12 | XMS_ITS | Encounter Summary ---
Author Organization [facility] Address [address] [facility] [address] Phone Care Team Providers Care Manager Of Finance Name Role Phone Brooke Pickering Primary Care Pro vider Catalino Gleason APRN, STUDENT AMBASSADOR Unavailable + [phone] Reason for Visit * Reason Comments Medication Refill Encounter Details Date Type Department Care Team (Late st Contact Info) Description 07/20/2024 Refill [facility] - [facility] [place] [address] [place] [id number] Brooke Pickering, [facility] [address] [place] [address] Medication Refill Social History Tobacco Use Types Packs/Day Years Used Date Smoking Tobacco: Every Day Cigarettes Smokeless Tobacco: Never Alcohol Use Standard Drinks/Week Comments Yes 0 (1 standard drink = 0.6 oz pur e alcohol) [facility] Utilities Answer Date Recorded In the past 12 months has [employer], gas, oil, or water Way[employer] threatened to shut off services in your home? No 06/23/2024 Social Connection and Isolation Panel Answer Date Recorded In a typical week, how many times do you talk on the phone with family, friends, or neighbors? Twice a week 06/23/2024 How often do you get together with friends or re latives? Once a week 06/23/2024 How often do you attend adventist or confucianist serv ices? Never 06/23/2024 Do you belong to any clubs o r organizations such as adventist groups, unions, fraternal or athletic groups, or [...] Total Score - Questions 1-9 2 05/09 [facility] - Occupational Stress Questionnaire Answer Date Recorded [...] any time in the past 12 m [facility], were you homeless or living in a correction (including now)? No 06/23/2024 Sex and Gender Information Value Date Recorded Sex Assigned at Not on file Legal Sex Male 8:06 PM CDT Gender Identity Not on file Sexual Orientation Not on file documented as of this encounter Plan of Treatment Upcoming Encounters Date Type Department Care Team (Late st Contact Info) Description 12/20/2024 2:15 PM CDT [facility] [address] [place] [address] Catalino Gleason APRN, STUDENT AMBASSADOR [address] [place] [address] documented as of this encounter Visit Diagnoses Not on filedocumented in this encounter Additional Health Concerns Infection Onset Date Last Indicated Resolved Time COVID - 19 08/04/2024 08/04/2024 08/04/2024 2:25 PM CDT Assessment Noted Time PHQ-9 Depression Total Score: 2 06/02/19 25 12:54 PM JOB COACH documented as of this encounter Care Teams Manager Of Finance Relationship Specialty Start Date End Date Brooke Pickering PAC PCP - General Physician Newswriter 01/15/24 Catalino Gleason, [employer]PL[employer] G[employer] LINER ASSEMBLER, STUDENT AMBASSADOR [address] [place] [address] Nurse Practitioner Advanced Practice Nurse 08/05/24 documented as of this encounter
--- NOTE | 2024-12-10 14:38 | ED.SKABFB ---
HPI - Skin/Abscess/Foreign Bdy General Chief complaint: Skin/Abscess/Foreign Body Stated complaint: Skin Sore on Left Arm Time Seen by Provider: 12/10/24 14:38 Source: patient Mode of arrival: ambulatory Limitations: no limitations History of Present Illness HPI narrative: 64 yo M presents with c/o abnormal skin lesion to L forearm for awhile. getting larger in size and now has some soreness. When he showed it to his PCP awhile back they told him it was nothing to worry about. Denies injury. All systems reviewed and negative except as noted above. Related Data Home Medications ?Medication ?Instructions ?Recorded ?Confirmed ?Last Taken ?Type albuterol sulfate 90 mcg/actuation inhalation 04/30/24 Unknown History aerosol inhaler amlodipine 10 mg tablet mg 04/30/24 Unknown History bupropion HCl 75 mg tablet mg PO 04/30/24 Unknown History buspirone 5 mg tablet mg 04/30/24 Unknown History lisinopril 40 mg tablet mg 04/30/24 Unknown History Allergies Allergy/AdvReac Type Severity Reaction Status Date / Time Penicillins Allergy Unknown unknown Verified 12/10/24 14:06 [facility] Past Medical History Medical History (Updated 12/10/24 @ 14:43 by Lona Brizuela NP) Anxiety Hypertension Social History Social History (Updated 05/01/24 @ 12:28 by Tanya Baker NP) Smoking packs per day: 0.5 Smoking cigarettes per day: 10.0 Years smoked: 30 Smoking pack-years: 15.00 Smoking status: Current every day smoker Tobacco type: cigarettes Alcohol intake: current Alcohol use details: social Substance use type: does not use Gender identity (if verbalized by the patient): Male Comments At time of signature, agree with nursing past medical, surgical, social and family history. There is no relevant family history pertinent to the presenting complaint. Exam Narrative: GENERAL: This is a well-nourished, well-developed patient, in no apparent distress. HEAD: normocephalic, atraumatic. EYES: PERRL. Sclera clear/white. Vision is grossly intact. EARS: External ears normal NOSE: External nose normal NECK: Neck supple, non-tender without lymphadenopathy, masses or thyromegaly. CARDIOVASCULAR: Regular rate and rhythm without murmurs, gallops, or rubs. RESPIRATORY: Clear to auscultation. Breath sounds equal bilaterally. No wheezes, rales, or rhonchi. SKIN: warm, Dry, intact good texture and turgor. Raised lesion approx. 1.5cm diameter. circular. centeris erythematous and bumpy appearing. border is similar pigmentation to skin. NEURO: awake, alert, and oriented to person, place and time. There were no obvious focal neurologic abnormalities. EXTREMITIES: No joint tenderness, effusion, or edema noted. Course Course Level of Care: Express Care Visit Vital Signs Vital signs: Vital Signs Temperature 36.9 C 12/10/24 14:12 Pulse Rate 78 12/10/24 14:12 Respiratory Rate 18 12/10/24 14:12 Blood Pressure 154/73 H 12/10/24 14:12 Pulse Oximetry 98 12/10/24 14:12 Oxygen Delivery Room Air 12/10/24 14:12 Temperature 36.9 C 12/10/24 14:12 Pulse Rate 78 12/10/24 14:12 Respiratory Rate 18 12/10/24 14:12 Blood Pressure 154/73 H 12/10/24 14:12 Pulse Oximetry 98 12/10/24 14:12 Oxygen Delivery Room Air 12/10/24 14:12 reviewed MDM - Skin/Abscess/Foreign Bdy MDM Narrative Medical decision making narrative: recommend follow up with dermatology for further evaluation and treatment of skin lesion. Discharge Plan Discharge Clinical Impression: Abnormal appearance of skin Patient Disposition: Home Condition: Stable Instructions: General Patient Instructions Additional Instructions: Follow up with electrical appliance mechanic for further evaluation of abnormal skin lesion. [facility] Dermatology [phone] Patient Language: Telugu Prescriptions: No Action buspirone 5 mg tablet amlodipine 10 mg tablet bupropion HCl 75 mg tablet PO albuterol sulfate 90 mcg/actuation HFA aerosol inhaler INHALATION lisinopril 40 mg tablet methylprednisolone [Medrol (Itz)] 4 mg tablets,dose pack See Rx Instructions .ROUTE .COMPLEX Qty: 21 0RF Rx Instructions: orally per package directions fluticasone propionate [Flonase Allergy Relief] 50 mcg/actuation spray,suspension 2 spray NASAL DAILY 14 Days Qty: 15.8 0RF Rx Instructions: administer into each nostril Follow-up/Referrals: Ladan,CESAR Cox [Primary Care Provider, Unknown] Time of Disposition: 14:43
== END 2024-12-10 14:57 | disposition home or self-care (01) ==
PROVIDERS: Emergency Provider Nurse Practitioner Family; PCP Physician Assistant
DX: L98.9 Disorder of the skin and subcutaneous tissue, unspecified (principal); I10 Essential (primary) hypertension; F17.210 Nicotine dependence, cigarettes, uncomplicated
CPT/HCPCS: 99213; G0463